=== PATIENT | male | born 1980 | race Caucasian/White ===

== ENCOUNTER 2017-02-15 02:24 | Inpatient (IN) | payer OTHER ==
[~2017-02-15] VITALS: Ht 177.8 cm; Wt 85.0 kg
[~2017-02-15 02:24] MED LIST: Z.0.NO CURRENT MEDS
[2017-02-15 02:43] VITALS: BP 170/78; PULSE 106; RESP 22; TEMP 100.7; O2SAT 96
--- NOTE | 2017-02-15 03:08 | PD ---
HPI Chief Complaint: Psychiatric Symptoms Time Seen by Provider: 02:50 Travel History International Travel<30 days: No Contact w/Intl Traveler<30days: No Traveled to known affect area: No History of Present Illness HPI This is a 36-year-old male who presents under Morgan act initiated by [facility]'s office. According to his paperwork, "after making contact with Endy Avila he appeared to be in mental distress and Endy made comments that if left alone that he would likely without treatment harm himself. " He reports for the past several days he has been having passive thoughts of suicide. He reports that yesterday he stated a friend's house and the friend had several animals. He reports that he woke up today with a pruritic widespread rash. Apparently just prior to arriving here he was seen at [facility] where he was diagnosed with bedbugs. He was prescribed permethrin, prednisone and Benadryl. Immediately after being seen at [facility] he found a transit police officer and said that he was suicidal now. During review of systems he does endorse a slight sore throat. No sick contacts. Denies any drug use. Denies cough, congestion, chest pain, shortness of breath, abdominal pain, flank pain. No other complaints. PFSH Past Medical History Anxiety: Yes Immunizations Current: Yes Social History Alcohol Use: Yes (SOCIAL) Tobacco Use: Yes (2 PPD) Substance Use: Yes Allergies-Medications (Allergen,Severity, Reaction): Coded Allergies: acetaminophen (Unverified Allergy, Severe, Anaphylaxis, 02/15/17) bee venom protein (honey bee) (Unverified Allergy, Severe, Anaphylaxis, ) penicillin G (Unverified Allergy, Mild, 02/15/17) Reported Meds & Prescriptions Reported Meds & Active Scripts Active Active Prescriptions or Reported Medications Unobtainable Review of Systems Except as stated in HPI: all other systems reviewed are Neg Physical Exam Narrative GENERAL: This is a well-developed well-nourished male who is agitated on examination. SKIN: Warm and dry. Excoriated papular rash noted on the torso and extremities. No vesicles, no pustules, no petechiae, no purpura. HEAD: Atraumatic. Normocephalic. EYES: Pupils equal and round. No scleral icterus. No injection or drainage. ENT: No nasal bleeding or discharge. Mucous membranes pink and moist. No oral pharyngeal erythema or exudate. NECK: Trachea midline. No JVD. No lymphadenopathy. CARDIOVASCULAR: Regular rate and rhythm. No murmur appreciated. RESPIRATORY: No accessory muscle use. Clear to auscultation. Breath sounds equal bilaterally. GASTROINTESTINAL: Abdomen soft, non-tender, nondistended. Hepatic and splenic margins not palpable. MUSCULOSKELETAL: No obvious deformities. No clubbing. No cyanosis. No edema. NEUROLOGICAL: Awake and alert. No obvious cranial nerve deficits. Motor grossly within normal limits. Normal speech. PSYCHIATRIC: Insight and judgment appear limited. Data Data Last Documented VS Vital Signs Date Time Temp Pulse Resp B/P (MAP) Pulse Ox O2 Delivery O2 Flow Rate FiO2 02/15/17 04:55 98.1 99 20 143/88 (106) 95 Room Air Orders Orders Complete Blood Count With Diff (02/15/17 03:02) Comprehensive Metabolic Panel (02/15/17 03:02) Psych Screen (02/15/17 03:02) Drug Screen, Random Urine (02/15/17 03:02) Alcohol (Ethanol) (02/15/17 03:02) Group A Rapid Strep Screen (02/15/17 03:02) Diphenhydramine Inj (Benadryl Inj) (02/15/17 03:15) Permethrin 5% Cream (Elimite 5% Cream) (02/15/17 03:15) Haloperidol Inj (Haldol Inj) (02/15/17 03:30) Diphenhydramine Inj (Benadryl Inj) (02/15/17 03:30) Midazolam Inj (Versed Inj) (02/15/17 03:30) Restraints Violent (02/15/17 03:27) Urinalysis - C+S If Indicated (02/15/17 04:09) Ketorolac Inj (Toradol Inj) (02/15/17 04:15) Lactic Acid Sepsis Protocol (02/15/17 04:29) Blood Culture (02/15/17 04:29) Chest, Single Ap (02/15/17 04:29) Sodium Chlor 0.9% 1000 Ml Inj (Ns 1000 M (02/15/17 04:29) Sodium Chlor 0.9% 1000 Ml Inj (Ns 1000 M (02/15/17 04:29) Creatine Kinase (Cpk) (02/15/17 04:28) CKMB (02/15/17 04:28) CKMB% (02/15/17 04:28) Clindamycin (Cleocin) (02/15/17 06:15) Admit Order (Ed Use Only) (02/15/17 06:15) Labs Laboratory Tests Test 02/15/17 04:28 White Blood Count 6.8 TH/MM3 Red Blood Count 4.39 MIL/MM3 Hemoglobin 13.6 GM/DL Hematocrit 39.6 % Mean Corpuscular Volume 90.1 FL Mean Corpuscular Hemoglobin 30.9 PG Mean Corpuscular Hemoglobin Concent 34.3 % Red Cell Distribution Width 12.3 % Platelet Count 194 TH/MM3 Mean Platelet Volume 9.6 FL Neutrophils (%) (Auto) 89.5 % Lymphocytes (%) (Auto) 8.2 % Monocytes (%) (Auto) 1.8 % Eosinophils (%) (Auto) 0.2 % Basophils (%) (Auto) 0.3 % Neutrophils # (Auto) 6.1 TH/MM3 Lymphocytes # (Auto) 0.6 TH/MM3 Monocytes # (Auto) 0.1 TH/MM3 Eosinophils # (Auto) 0.0 TH/MM3 Basophils # (Auto) 0.0 TH/MM3 CBC Comment DIFF FINAL Differential Comment Blood Urea Nitrogen 28 MG/DL Creatinine 1.11 MG/DL Random Glucose 84 MG/DL Total Protein 8.6 GM/DL Albumin 4.4 GM/DL Calcium Level 9.2 MG/DL Alkaline Phosphatase 111 U/L Aspartate Amino Transf (AST/SGOT) 83 U/L Alanine Aminotransferase (ALT/SGPT) 51 U/L Total Bilirubin 1.3 MG/DL Sodium Level 134 MEQ/L Potassium Level 3.8 MEQ/L Chloride Level 98 MEQ/L Carbon Dioxide Level 23.3 MEQ/L Anion Gap 13 MEQ/L Estimat Glomerular Filtration Rate 74 ML/MIN Total Creatine Kinase 1900 U/L Ethyl Alcohol Level LESS THAN 3 MG/DL MDM Medical Decision Making Medical Screen Exam Complete: Yes Emergency Medical Condition: Yes Medical Record Reviewed: Yes Differential Diagnosis Rash- fleabites versus bedbugs versus scabies versus scarlet fever versus viral exanthem Psychosis- adjustment reaction, bipolar disorder, major depressive disorder, substance induced mood disorder, acute psychosis, encephalitis, meningitis Narrative Course 36-year-old male presents under Morgan act for evaluation of past suicidal thoughts. On examination he is agitated, certainly appears unpredictable from a psychiatric standpoint. Just prior to arriving here he was seen at [facility] for evaluation of a pruritic rash started this morning after staying at a friend's house. The friend has several pets. Scabies, bedbugs, fleas are all on the differential for this. Permethrin was ordered. He also endorses a slight sore throat and his temperature was slightly elevated at 100.7 The patient's lab work reveals rhabdomyolysis with total CK of 1900. 2 L of IV fluids have been ordered. The patient does have a positive group A strep antigen which is the most likely etiology for his rash. He is allergic to penicillin and therefore he was started on clindamycin. He has no leukocytosis. Given his rhabdomyolysis, the patient was admitted medically. Discussed with Dr. Astorga. Diagnosis Primary Impression: Rhabdomyolysis Additional Impression: Scarlet fever Admitting Information Admitting Physician Requests: Admit Scripts Unable to Obtain Active Prescriptions or Reported Meds Akil Clinton Feb 15, 2017 03:08
[2017-02-15] MEDS ORDERED: diphenhydrAMINE HCL 50 MG/ML VIAL IM ONE ×2 (03:15→03:30)
[2017-02-15] MEDS ORDERED: PERMETHRIN 5% CREAM 60 GM TOPICAL ONE (03:15)
[2017-02-15] MEDS ORDERED: HALOPERIDOL LACTATE 5 MG/ML AMP IM ONE (03:30)
[2017-02-15] MEDS ORDERED: MIDAZOLAM HCL 2 MG/2 ML VIAL IM ONE (03:30)
[2017-02-15] MEDS ORDERED: KETOROLAC TROMETHAMINE 60 MG/2 ML (IM) VIAL IM ONE (04:15)
[2017-02-15] MEDS ORDERED: SODIUM CHLOR 0.9% 1000 ML INJ 1,000 ML IV SCH ×3 (04:29→06:20)
[2017-02-15 04:55] VITALS: BP 143/88; PULSE 99; RESP 20; TEMP 98.1; O2SAT 95
[2017-02-15 05:09] LABS: AUTOMATED NEUTROPHIL # 6.1 TH/MM3 (1.8-7.7); BASOPHIL % 0.3 % (0.0-2.0); EOSINOPHIL % 0.2 % (0.0-4.0); HEMATOCRIT 39.6 % (39.0-51.0); HEMO FLAGS DIFF FINAL; LYMPH % 8.2 % (9.0-44.0); LYMPHOCYTE # 0.6 TH/MM3 (1.0-4.8); MEAN CELL VOLUME 90.1 FL (80.0-100.0); MEAN CORPUSCULAR HEMOGLOBIN 30.9 PG (27.0-34.0); MEAN CORPUSCULAR HGB CONC 34.3 % (32.0-36.0); MONO % 1.8 % (0.0-8.0); NEUT % 89.5 % (16.0-70.0); PLATELET COUNT 194 TH/MM3 (150-450); RED BLOOD COUNT 4.39 MIL/MM3 (4.50-5.90); RED CELL DISTRIBUTION WIDTH 12.3 % (11.6-17.2); WHITE BLOOD COUNT 6.8 TH/MM3 (4.0-11.0)
[2017-02-15 05:31] LABS: ALT (GPT) 51 U/L (12-78); ANION GAP 13 MEQ/L (5-15); AST (GOT) 83 U/L (15-37); BICARBONATE 23.3 MEQ/L (21.0-32.0); BLOOD UREA NITROGEN 28 MG/DL (7-18); CHLORIDE 98 MEQ/L (98-107); GLOMERULAR FILTRATION RATE 74 ML/MIN (>89); POTASSIUM 3.8 MEQ/L (3.5-5.1); SODIUM (NA) 134 MEQ/L (136-145)
[2017-02-15 05:33] LABS: ALCOHOL LESS THAN 3 MG/DL (0-5)
[2017-02-15 05:46] LABS: ALKALINE PHOSPHATASE 111 U/L (45-117); CREATINE KINASE 1900 U/L (39-308); TOTAL BILIRUBIN ADULT 1.3 MG/DL (0.2-1.0)
--- NOTE | 2017-02-15 05:51 | RADRPT ---
EXAM DATE/TIME: 02/15/2017 05:41 [place] COMPARISON: No previous studies available for comparison. INDICATIONS : Fever. MEDICAL HISTORY : None. SURGICAL HISTORY : None. ENCOUNTER: Initial ACUITY: 1 day PAIN SCORE: 0/10 LOCATION: Bilateral chest FINDINGS: Single AP view of the chest. The lungs are clear. Cardiomediastinal silhouette within normal limits. No evidence of pleural effusion or pneumothorax. Osteochondral bodies are seen in the region of the l eft glenohumeral joint. CONCLUSION: No acute cardiopulmonary disease identified. Gary Chavarria MD on February 15, 2017 at 5:48 Board Certified Radiologist. This report was verified electronically.
--- NOTE | 2017-02-15 06:07 | PD ---
Physical Exam Date Seen by Provider: Feb 15, 2017 Time Seen by Provider: 05:30 Narrative Patient is strep positive has mild rhabdo has possibly his cardiac and rash from strep pharyngitis is admitted for all the above I agree with the plan into spelled by the PA Data Data Last Documented VS Vital Signs Date Time Temp Pulse Resp B/P (MAP) Pulse Ox O2 Delivery O2 Flow Rate FiO2 02/15/17 04:55 98.1 99 20 143/88 (106) 95 Room Air Orders Orders Complete Blood Count With Diff (02/15/17 03:02) Comprehensive Metabolic Panel (02/15/17 03:02) Psych Screen (02/15/17 03:02) Drug Screen, Random Urine (02/15/17 03:02) Alcohol (Ethanol) (02/15/17 03:02) Group A Rapid Strep Screen (02/15/17 03:02) Diphenhydramine Inj (Benadryl Inj) (02/15/17 03:15) Permethrin 5% Cream (Elimite 5% Cream) (02/15/17 03:15) Haloperidol Inj (Haldol Inj) (02/15/17 03:30) Diphenhydramine Inj (Benadryl Inj) (02/15/17 03:30) Midazolam Inj (Versed Inj) (02/15/17 03:30) Restraints Violent (02/15/17 03:27) Urinalysis - C+S If Indicated (02/15/17 04:09) Ketorolac Inj (Toradol Inj) (02/15/17 04:15) Lactic Acid Sepsis Protocol (02/15/17 04:29) Blood Culture (02/15/17 04:29) Chest, Single Ap (02/15/17 04:29) Sodium Chlor 0.9% 1000 Ml Inj (Ns 1000 M (02/15/17 04:29) Sodium Chlor 0.9% 1000 Ml Inj (Ns 1000 M (02/15/17 04:29) Creatine Kinase (Cpk) (02/15/17 04:28) CKMB (02/15/17 04:28) CKMB% (02/15/17 04:28) Clindamycin (Cleocin) (02/15/17 06:15) Labs Laboratory Tests Test 02/15/17 04:28 White Blood Count 6.8 TH/MM3 Red Blood Count 4.39 MIL/MM3 Hemoglobin 13.6 GM/DL Hematocrit 39.6 % Mean Corpuscular Volume 90.1 FL Mean Corpuscular Hemoglobin 30.9 PG Mean Corpuscular Hemoglobin Concent 34.3 % Red Cell Distribution Width 12.3 % Platelet Count 194 TH/MM3 Mean Platelet Volume 9.6 FL Neutrophils (%) (Auto) 89.5 % Lymphocytes (%) (Auto) 8.2 % Monocytes (%) (Auto) 1.8 % Eosinophils (%) (Auto) 0.2 % Basophils (%) (Auto) 0.3 % Neutrophils # (Auto) 6.1 TH/MM3 Lymphocytes # (Auto) 0.6 TH/MM3 Monocytes # (Auto) 0.1 TH/MM3 Eosinophils # (Auto) 0.0 TH/MM3 Basophils # (Auto) 0.0 TH/MM3 CBC Comment DIFF FINAL Differential Comment Blood Urea Nitrogen 28 MG/DL Creatinine 1.11 MG/DL Random Glucose 84 MG/DL Total Protein 8.6 GM/DL Albumin 4.4 GM/DL Calcium Level 9.2 MG/DL Alkaline Phosphatase 111 U/L Aspartate Amino Transf (AST/SGOT) 83 U/L Alanine Aminotransferase (ALT/SGPT) 51 U/L Total Bilirubin 1.3 MG/DL Sodium Level 134 MEQ/L Potassium Level 3.8 MEQ/L Chloride Level 98 MEQ/L Carbon Dioxide Level 23.3 MEQ/L Anion Gap 13 MEQ/L Estimat Glomerular Filtration Rate 74 ML/MIN Total Creatine Kinase 1900 U/L Ethyl Alcohol Level LESS THAN 3 MG/DL MDM Supervised Visit with VASILE: Yes Narrative Course Patient had mild elevation of temperature 100.7 we worked him up to make sure there was no infectious source. Chest x-ray is negative repeat temp oral is normal CPK was 1900. Patient will be admitted for IV hydration and repeat of CPK. I agree with the plan and management of this patient strep comes back positive we are treating him with clindamycin he is pen allergic and he is admitted for rhabdomyolysis and the rash may be secondary to strep positive pharyngitis Scripts Unable to Obtain Active Prescriptions or Reported Meds Nabil Méndez MD Feb 15, 2017 06:07
[2017-02-15] MEDS ORDERED: CLINDAMYCIN 150 MG CAP PO ONE (06:15)
[2017-02-15 06:22] LABS: CKMB 24.2 NG/ML (0.5-3.6)
[2017-02-15] MEDS ORDERED: SENNOSIDES 8.6 MG TAB PO PRN (06:30)
[2017-02-15] MEDS ORDERED: BISACODYL 10 MG SUPP RECTAL PRN (06:30)
[2017-02-15] MEDS ORDERED: ONDANSETRON HCL 4 MG/2 ML VIAL IVP PRN (06:30)
[2017-02-15] MEDS ORDERED: SODIUM CHLORIDE 0.9% FLUSH 10 ML FLUSH IV FLUSH PRN (06:30)
[2017-02-15] MEDS ORDERED: LACTULOSE SYRUP 20 GM/30 ML CUP PO PRN (06:30)
[2017-02-15] MEDS ORDERED: MAGNESIUM HYDROXIDE SUSP 30 ML CUP PO PRN (06:30)
[2017-02-15] MEDS ORDERED: ACETAMINOPHEN 325 MG TAB PO PRN (06:30)
[2017-02-15 07:06] VITALS: BP 157/85; PULSE 98; RESP 16; TEMP 97.5; O2SAT 97
[2017-02-15 08:28] VITALS: BP 135/76; PULSE 98; RESP 18; TEMP 96.9; O2SAT 100
--- NOTE | 2017-02-15 08:40 | HHI.HP ---
[facility] No Primary Care Physician Admission Diagnosis rhabdomyolysis, scarlet fever, Morgan act Diagnoses: Travel History International Travel<30 Days: No Contact w/Intl Traveler <30 Da: No Traveled to Known Affected Are: No History of Present Illness Pt is a 36 yr old male w PMHx w anxiety, depression, mood d/o, personality d/o presented under backer act. Pt is a poor historian, initially doesn't want to talk to me and states "I already said why I'm here" then rolls onto his side and closes his eyes. Upon further questioning, he tells me that he started feeling bad last night. He states he had a fever while here in the hospital, started having a sore throat since last night, no sick contacts that he knows. have been itching all over since last night, he was somewhere infested w "insects". no animal he states but "insects". He also admits that he constantly thinks about hurting himself then he becomes agitated and doesn't want to elaborate more about his thoughts or plan. Pt then jumps out of bed and states he needs to use the restroom. Sitter at bedside assisted the patient. Pt denied any chest pain, SOB, cough, sneezing, runny nose, abdominal pain. Review of Systems Except as stated in HPI: all other systems reviewed are Neg Past Family Social History Past Medical History anxiety, depression, mood d/o, personality d/o Past Surgical History right eye sx and left ankle sx Reported Medications Reported Meds & Active Scripts Active Active Prescriptions or Reported Medications Unobtainable Allergies: Coded Allergies: acetaminophen (Unverified Allergy, Severe, Anaphylaxis, 02/15/17) bee venom protein (honey bee) (Unverified Allergy, Severe, Anaphylaxis, ) penicillin G (Unverified Allergy, Mild, 02/15/17) Family History doesn't speak to his mother and father was murdered. 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 Normocephalic. No temporal or scalp tenderness. EYES: Pupils equal round and reactive. Extraocular motions intact. No scleral icterus. No injection or drainage. ENT: Nose without drainage or septal hematoma. Throat with some erythema, I didn't appreciate very enlarge tonssils and didn't see any purulent drainage NECK: Trachea midline. He does have some cervical lymphadenopathy CARDIOVASCULAR: Regular rate and rhythm without murmurs RESPIRATORY: Clear to auscultation. Breath sounds equal bilaterally. No wheezes GASTROINTESTINAL: Abdomen soft, non-tender, nondistended. No guarding. MUSCULOSKELETAL: Extremities without edema. walking in the room w no difficulty NEUROLOGICAL: initially keeps eyes close, and didn't want to answer questions, but later does offer some information then gets out of bed and uses the restroom Laboratory Laboratory Tests Test 02/15/17 04:28 02/15/17 05:15 White Blood Count 6.8 Red Blood Count 4.39 Hemoglobin 13.6 Hematocrit 39.6 Mean Corpuscular Volume 90.1 Mean Corpuscular Hemoglobin 30.9 Mean Corpuscular Hemoglobin Concent 34.3 Red Cell Distribution Width 12.3 Platelet Count 194 Mean Platelet Volume 9.6 Neutrophils (%) (Auto) 89.5 Lymphocytes (%) (Auto) 8.2 Monocytes (%) (Auto) 1.8 Eosinophils (%) (Auto) 0.2 Basophils (%) (Auto) 0.3 Neutrophils # (Auto) 6.1 Lymphocytes # (Auto) 0.6 Monocytes # (Auto) 0.1 Eosinophils # (Auto) 0.0 Basophils # (Auto) 0.0 CBC Comment DIFF FINAL Differential Comment Blood Urea Nitrogen 28 Creatinine 1.11 Random Glucose 84 Total Protein 8.6 Albumin 4.4 Calcium Level 9.2 Alkaline Phosphatase 111 Aspartate Amino Transf (AST/SGOT) 83 Alanine Aminotransferase (ALT/SGPT) 51 Total Bilirubin 1.3 Sodium Level 134 Potassium Level 3.8 Chloride Level 98 Carbon Dioxide Level 23.3 Anion Gap 13 Estimat Glomerular Filtration Rate 74 Total Creatine Kinase 1900 Creatine Kinase MB 24.2 Creatine Kinase MB % 1.3 Ethyl Alcohol Level LESS THAN 3 Lactic Acid Level 1.0 Date/Time Source Procedure Growth Status 02/15/17 06:15 Blood Peripheral Aerobic Blood Culture Pending Received 02/15/17 06:15 Blood Peripheral Anaerobic Blood Culture Pending Received 02/15/17 05:20 Throat Group A Streptococcus Screen (BORA) - Final Pos For Grp A Strep Antigen Complete Result Diagram: 02/15/1742702/15/17427 Imaging Last Impressions Chest X-Ray 02/15/17428 Signed Impressions: Service Date/Time: Wednesday, February 15, 2017 05:41 - CONCLUSION: No acute cardiopulmonary disease identified. MD Cayden Deleon VTE Risk Assessment Caprini VTE Risk Assessment: No/Low Risk (score <= 1) Caprini Risk Assessment Model Point Value = 1 Point Value = 2 Point Value = 3 Point Value = 5 Age 41-60 Minor surgery BMI > 25 kg/m2 Swollen legs Varicose veins or History of unexplained or recurrent spontaneous Oral contraceptives or hormone replacement Sepsis (< 1 month) Serious lung disease, including pneumonia (< 1 month) Abnormal pulmonary function Acute myocardial infarction Congestive heart failure (< 1 month) History of inflammatory bowel disease Medical patient at bed rest Age 61-74 Arthroscopic surgery Major open surgery (> 45 min) Laparoscopic surgery (> 45 min) Malignancy Confined to bed (> 72 hours) Immobilizing plaster cast Central venous access Age >= 75 History of VTE Family history of VTE Factor V Leiden Prothrombin [id number] Lupus anticoagulant Anticardiolipin antibodies Elevated serum homocysteine Heparin-induced thrombocytopenia Other congenital or acquired thrombophilia Stroke (< 1 month) Elective arthroplasty Hip, pelvis, or leg fracture Acute spinal cord injury (< 1 month) Prophylaxis Regimen Total Risk Factor Score Risk Level Prophylaxis Regimen 0-1 Low Early ambulation 2 Moderate Order ONE of the following: *Sequential Compression Device (SCD) *Heparin 5000 units SQ BID 3-4 Higher Order ONE of the following medications: *Heparin 5000 units SQ TID *Enoxaparin/Lovenox 40 mg SQ daily (WT < 150 kg, CrCl > 30 mL/min) *Enoxaparin/Lovenox 30 mg SQ daily (WT < 150 kg, CrCl > 10-29 mL/min) *Enoxaparin/Lovenox 30 mg SQ BID (WT < 150 kg, CrCl > 30 mL/min) AND/OR *Sequential Compression Device (SCD) 5 or more Highest Order ONE of the following medications: *Heparin 5000 units SQ TID (Preferred with Epidurals) *Enoxaparin/Lovenox 40 mg SQ daily (WT < 150 kg, CrCl > 30 mL/min) *Enoxaparin/Lovenox 30 mg SQ daily (WT < 150 kg, CrCl > 10-29 mL/min) *Enoxaparin/Lovenox 30 mg SQ BID (WT < 150 kg, CrCl > 30 mL/min) AND *Sequential Compression Device (SCD) Assessment and Plan Assessment and Plan Strep throat pharyngitis: PNC allergic, confirmed on Group A strep antigen. Given a dose of clinda in ER, will continue clindamycin IV for now and transition to 300mg po TID for a total of 10 days. Blood cx were drawn en ER, will f/u. chest x-ray neg. Suicidal thoughts/thoughts to harm himself.: Pt currently under backer act. Sitter at bedside. will consult psych for assistance and recs. Pt admits to me that he constantly thinks about harming himself. Pt also w dx of depression/personality d/o/mood d/o: psych consulted Itching/rash: pt treated w permetrim in ED for possible scabies. Continue benadryl prn. Itching has resolved DVT proph: SCD Code Status Pt states that he wants to be a DNR however due to his constant thoughts of harming himself, will defer to psych evaluation for capacity to make this decision and pt is also under Backer act. Discussed Condition With patient and Fabiana Whalen MD Feb 15, 2017 08:40
[2017-02-15] MEDS ORDERED: diphenhydrAMINE HCL 25 MG CAP PO PRN (08:45)
[2017-02-15] MEDS ORDERED: SODIUM CHLORIDE 0.9% FLUSH 10 ML FLUSH IV FLUSH SCH (09:00)
[2017-02-15] MEDS ORDERED: DOCUSATE SODIUM 50 MG/SENNA 8.6 MG TAB PO SCH (09:00)
[2017-02-15 11:28] VITALS: BP 152/93; PULSE 97; RESP 17; TEMP 98.3; O2SAT 92
[2017-02-15] MEDS ORDERED: CLIN300C5 PO (11:42)
[2017-02-15] MEDS ORDERED: CLINDAMYCIN 600 MG/NS PREMIX 50 ML IV SCH (12:00)
[2017-02-15] MEDS ORDERED: HALOPERIDOL LACTATE 5 MG/ML AMP IM PRN (12:45)
[2017-02-15] MEDS ORDERED: QUEtiapine FUMARATE 25 MG TAB PO SCH (12:45)
--- NOTE | 2017-02-15 12:54 | PD.PSY.CON ---
Provisional Diagnosis Admission Date Feb 15, 2017 at 06:16 [place] I. Adjustment disorder with depressed mood, self reported bipolar disorder, borderline personality disorder, antisocial personality disorder [place] II. Antisocial personality disorder [place] III. No significant medical history History of Present Illness Service Psychiatry Consult Requested By Medical team Reason for Consult Suicidal ideation Primary Care Physician No Primary Care Physician HPI The patient is a a 36 year-old man, single, unemployed, homeless, with a self-reported psychiatric history of bipolar disorder, anxiety, antisocial personality disorder, borderline personality disorder, substance use disorder, multiple psychiatric hospitalizations, multiple suicidal attempts, self cutting behavior with no SI, aggressive behavior, multiple incarcerations, significant medical history, who was consulted to psychiatry due to SI in the ER. Pt is a poor historian, initially doesn't want to talk to me and states "I already said why I'm here" then rolls onto his side and closes his eyes. Upon further questioning, he tells me that he started feeling bad last night. He states he had a fever while here in the hospital, started having a sore throat since last night, no sick contacts that he knows. have been itching all over since last night, he was somewhere infested w "insects". no animal he states but "insects". He also admits that he constantly thinks about hurting himself then he becomes agitated and doesn't want to elaborate more about his thoughts or plan. Pt then jumps out of bed and states he needs to use the restroom. Sitter at bedside assisted the patient.Pt denied any chest pain, SOB, cough, sneezing, runny nose, abdominal pain. On psychiatric evaluation the patient is found sleeping in his bed, oppositional, irritable, resistant to the evaluation. He says that he doesn't want to talk, that he is frustrated and very overwhelmed and he prefers not to talk at this moment. Patient says that "yes I want to , he is want to kill myself". Patient reports that he doesn' t care about his life anymore, he says that he has been living in [address], very sick, with a lot of pain and itching in his legs. Review of Systems Constitutional: DENIES: Diaphoretic episodes, Fatigue, Fever, Weight gain, Weight loss, Chills, Dizziness, Change in appetite, Night Sweats Endocrine: DENIES: Heat/cold intolerance, Polydipsia, Polyuria, Polyphagia Ears, nose, mouth, throat: DENIES: Tinnitus, Hearing loss, Vertigo, Nasal discharge, Oral lesions, Throat pain, Hoarseness, Ear Pain, Running Nose, Epistaxis, Sinus Pain, Toothache, Odynophagia Respiratory: DENIES: Apneas, Cough, Snoring, Wheezing, Hemoptysis, Sputum production, Shortness of breath Cardiovascular: DENIES: Chest pain, Palpitations, Syncope, Dyspnea on Exertion , PND, Lower Extremity Edema, Orthopnea, Claudication Gastrointestinal: DENIES: Abdominal pain, Black stools, Bloody stools, Constipation, Diarrhea, Nausea, Vomiting, Difficulty Swallowing, Anorexia Genitourinary: DENIES: Sexual dysfunction, Urinary frequency, Urinary incontinence, Urgency, Hematuria, Dysuria, Nocturia, Penile Discharge, Testicular Pain, Testicular Swelling Musculoskeletal: COMPLAINS OF: Joint pain, DENIES: Muscle aches, Stiffness, Joint Swelling, Back pain, Neck pain Integumentary: DENIES: Abnormal pigmentation, Nail changes, Pruritus, Rash Immunologic/allergic: COMPLAINS OF: Eczema, DENIES: Urticaria Psychiatric: COMPLAINS OF: Depression, Suicidal Ideation Other Legs itchiness Past Family Social History Coded Allergies: acetaminophen (Unverified Allergy, Severe, Anaphylaxis, 02/15/17) bee venom protein (honey bee) (Unverified Allergy, Severe, Anaphylaxis, ) penicillin G (Unverified Allergy, Mild, 02/15/17) Active Scripts Clindamycin (Clindamycin) 300 Mg Cap, 300 MG PO TID for Infection for 10 Days, # 29 CAP 0 Refills Prov:Fabiana Arellano MD 02/15/17 Discontinued Reported Medications Miscellaneous (No Current Meds) Misc 09/05/08 Current Medications Medications (Trade) Dose Ordered Sig/Lanette Route Start Time Stop Time Status Last Admin Clindamycin/ Sodium Chloride 50 ml @ 100 mls/hr Q6H IV 02/15/17 12:00 Sodium Chloride 1,000 ml @ 150 mls/hr Q6H40M IV 02/15/17 06:20 (NS Flush) 2 ml UNSCH PRN IV FLUSH 02/15/17 06:30 (NS Flush) 2 ml BID IV FLUSH 02/15/17 09:00 02/15/17 10:00 (Zofran Inj) 4 mg Q6H PRN IVP 02/15/17 06:30 (Rebekah-Colace) 1 tab BID PO 02/15/17 09:00 (Milk Of Magnesia Liq) 30 ml Q12H PRN PO 02/15/17 06:30 (Senokot) 17.2 mg Q12H PRN PO 02/15/17 06:30 (Dulcolax Supp) 10 mg DAILY PRN RECTAL 02/15/17 06:30 (Lactulose Liq) 30 ml DAILY PRN PO 02/15/17 06:30 (Benadryl) 25 mg Q6H PRN PO 02/15/17 08:45 (SEROquel) 50 mg BID PO 02/15/17 12:45 UNV Family Psych History He denies family psychiatric history Social History Patient was born and raised in [place], he lives in [facility], he is homeless, unemployed, single, his highest level of education is high school Patient's Strengths (min. 2) Verbal communication Physical Exam No EPS, no tremors, no withdrawal noted Vital Signs Vital Signs Date Time Temp Pulse Resp B/P (MAP) Pulse Ox O2 Delivery O2 Flow Rate FiO2 02/15/17 11:28 98.3 97 17 152/93 (112) 92 02/15/17 07:06 Room Air I/O 02/15/17 02/15/17 02/16/17 08:00 16:00 00:00 Intake Total 1000 ml Balance 1000 ml Lab Results Test 02/15/17 04:28 02/15/17 05:15 White Blood Count 6.8 TH/MM3 Red Blood Count 4.39 MIL/MM3 Hemoglobin 13.6 GM/DL Hematocrit 39.6 % Mean Corpuscular Volume 90.1 FL Mean Corpuscular Hemoglobin 30.9 PG Mean Corpuscular Hemoglobin Concent 34.3 % Red Cell Distribution Width 12.3 % Platelet Count 194 TH/MM3 Mean Platelet Volume 9.6 FL Neutrophils (%) (Auto) 89.5 % Lymphocytes (%) (Auto) 8.2 % Monocytes (%) (Auto) 1.8 % Eosinophils (%) (Auto) 0.2 % Basophils (%) (Auto) 0.3 % Neutrophils # (Auto) 6.1 TH/MM3 Lymphocytes # (Auto) 0.6 TH/MM3 Monocytes # (Auto) 0.1 TH/MM3 Eosinophils # (Auto) 0.0 TH/MM3 Basophils # (Auto) 0.0 TH/MM3 CBC Comment DIFF FINAL Differential Comment Blood Urea Nitrogen 28 MG/DL Creatinine 1.11 MG/DL Random Glucose 84 MG/DL Total Protein 8.6 GM/DL Albumin 4.4 GM/DL Calcium Level 9.2 MG/DL Alkaline Phosphatase 111 U/L Aspartate Amino Transf (AST/SGOT) 83 U/L Alanine Aminotransferase (ALT/SGPT) 51 U/L Total Bilirubin 1.3 MG/DL Sodium Level 134 MEQ/L Potassium Level 3.8 MEQ/L Chloride Level 98 MEQ/L Carbon Dioxide Level 23.3 MEQ/L Anion Gap 13 MEQ/L Estimat Glomerular Filtration Rate 74 ML/MIN Total Creatine Kinase 1900 U/L Creatine Kinase MB 24.2 NG/ML Creatine Kinase MB % 1.3 % Ethyl Alcohol Level LESS THAN 3 MG/DL Lactic Acid Level 1.0 mmol/L Date/Time Source Procedure Growth Status 02/15/17 06:15 Blood Peripheral Aerobic Blood Culture Pending Received 02/15/17 06:15 Blood Peripheral Anaerobic Blood Culture Pending Received 02/15/17 05:20 Throat Group A Streptococcus Screen (BORA) - Final Pos For Grp A Strep Antigen Complete Mental Status Examination Appearance: Dirty, Disheveled Consciousness: Alert Orientation: x4 Motor Activity: Normal gait Speech: Hesitant Language: Adequate Fund of Knowledge: Adequate Attention and Concentration: Adequate Memory: Unremarkable Mood: Angry, Irritable Affect: Irritable Thought Process & Associations: Intact Thought Content: Appropriate Hallucination Type: None Delusion Type: None Suicidal Ideation: Yes Suicidal Plan: Yes Suicidal Intention: No Homicidal Ideation: No Homicidal Plan: No Homicidal Intention: No Insight: Poor Judgment: Poor Assessment & Plan Problem List: (1) Adjustment disorder with depressed mood ICD Codes: F43.21 - Adjustment disorder with depressed mood Assessment & Plan: On psychiatric evaluation the patient is irritable, oppositional, resistant, refusing to fully cooperate and provide information for the psychiatric assessment. Patient does report that he has been very overwhelmed, stressed, angry and having suicidal ideation with the plan of overdosing or jumping into traffic. The patient has an extensive history of psychiatric admissions, I'll attempts, self cutting behavior with no SI, poor impulse control, aggressive behavior, substance abuse, incarcerations, and he has been diagnosed with borderline personality disorder and antisocial personality disorder in the past. Patient has an increased risk of suicidality and danger to himself at this moment and he needs psychiatric admission for stabilization. I have discussed with primary medical team the benefit of psychiatric admission in the med psych unit to continue medical care/ psychiatric care concomitantly. Will order Seroquel 50 twice a day for mood stabilization. Haldol 5 mg IM every 8 hours when necessary aggressive behavior and agitation, since patient has also an increased risk for agitation and aggressive behavior. Keep the patient with a one-to-one sitter in the medical floor. Brief supportive psychotherapy, motivation and psychoeducation provided. Collateral information still pending. Assessment & Plan Estimated LOS: Mikael Nj MD Feb 15, 2017 12:54
== END 2017-02-15 18:22 | DRG 558 ==
LOC: NEPJ 02:24 → NEDA 06:16 → N05B 07:36
PROVIDERS: ADMIT Family Medicine; ATTEND Family Medicine
DX: M62.82 Rhabdomyolysis (principal); R45.851 Suicidal ideations; J02.0 Streptococcal pharyngitis; B86 Scabies; F31.9 Bipolar disorder, unspecified; F43.21 Adjustment disorder with depressed mood; F60.2 Antisocial personality disorder; F60.3 Borderline personality disorder; F17.200 Nicotine dependence, unspecified, uncomplicated; Z59.0 Homelessness; Z88.0 Allergy status to penicillin; Z88.6 Allergy status to analgesic agent; Z91.030 Bee allergy status; Z91.5 Personal history of self-harm
CPT/HCPCS: 71010; 76937; 80053; 80307; 82550; 82552; 83605; 85025; 87040; 87880; 96372; J1200; J1630; J2250; J7030

== ENCOUNTER 2017-02-15 15:39 | Inpatient (IN) | payer SELFPAY ==
[~2017-02-15] VITALS: Ht 180.3 cm; Wt 82.0 kg
[~2017-02-15 15:39] MED LIST changes: +CLIN300C5 PO
[2017-02-15 18:40] VITALS: BP 121/66; PULSE 96; RESP 17; TEMP 97.1; O2SAT 98
[2017-02-15] MEDS ORDERED: FLUMAZENIL 0.5 MG/5 ML VIAL IV PUSH PRN (19:15)
[2017-02-15] MEDS ORDERED: ALUMINUM/MAGNESIUM/SIMETH 30 ML CUP PO PRN (19:15)
[2017-02-15] MEDS ORDERED: MAGNESIUM HYDROXIDE SUSP 30 ML CUP PO PRN (19:15)
[2017-02-15] MEDS ORDERED: diphenhydrAMINE HCL 50 MG/ML VIAL IM PRN (19:15)
[2017-02-15] MEDS ORDERED: LORazepam 2 MG TAB PO PRN (19:15)
[2017-02-15] MEDS ORDERED: LORazepam 1 MG TAB PO PRN (19:15)
[2017-02-15] MEDS ORDERED: diphenhydrAMINE HCL 50 MG CAP PO PRN (19:15)
[2017-02-16 05:38] VITALS: BP 151/71; PULSE 85; RESP 18; TEMP 97.7; O2SAT 98
--- NOTE | 2017-02-16 07:35 | PD.CONS ---
HPI Service [facility] Hospitalists Consult Requested By Dr Thurman Reason for Consult medical management Primary Care Physician Unknown Diagnoses: (1) Suicidal thoughts (2) Adjustment disorder with depressed mood History of Present Illness Pt is a 36 yr old male w PMHx w anxiety, depression, mood d/o, personality d/o presented under backer act initially to the ED. Patient said had a fever while in the hospital, started having a sore throat, no sick contacts that he knows. Have been itching all over he was somewhere infested with "insects". He also admitted that he constantly thinks about hurting himself then he becomes agitated and doesn't want to elaborate more about his thoughts or plan. Patient was treated with permethrin in the ED. Was found with rhabdomyolysis and received IVF. Stared on antibiotics for sore throat, he was discharged to medical /psych for further management. No urinary complaints, urine is clear - yellow. Rash improved and is not itchy. No more sore throat. Able to eat and tolerates food. Pt denied any chest pain, SOB, cough, sneezing, runny nose, abdominal pain. Refusing labs. Review of Systems Except as stated in HPI: all other systems reviewed are Neg Past Family Social History Allergies: Coded Allergies: acetaminophen (Unverified Allergy, Severe, Anaphylaxis, 02/15/17) bee venom protein (honey bee) (Unverified Allergy, Severe, Anaphylaxis, ) penicillin G (Unverified Allergy, Mild, 02/15/17) Past Medical History anxiety, depression, mood d/o, personality d/o Past Surgical History right eye sx and left ankle sx Reported Medications Reported Meds & Active Scripts Active Clindamycin (Clindamycin HCl) 300 Mg Cap 300 Mg PO TID 10 Days Family History doesn't speak to his mother and father was murdered. He doesn't offer any information regarding their health when asked Social History started smoking 2 months ago, <1ppd states he used to be a heroin addict no alcohol use Physical Exam Vital Signs Vital Signs Date Time Temp Pulse Resp B/P (MAP) Pulse Ox O2 Delivery O2 Flow Rate FiO2 02/16/17 05:38 97.7 85 18 151/71 (97) 98 02/15/17 18:40 97.1 96 17 121/66 (84) 98 Physical Exam GENERAL: This is a well-nourished, well-developed patient, in no apparent distress. SKIN: Rash on LE. Cool and dry. HEAD: Atraumatic. Normocephalic. No temporal or scalp tenderness. EYES: Pupils equal round and reactive. Extraocular motions intact. No scleral icterus. No injection or drainage. ENT: Nose without bleeding, purulent drainage or septal hematoma. Throat without erythema, tonsillar hypertrophy or exudate. Uvula midline. Airway patent. NECK: Trachea midline. No JVD or lymphadenopathy. Supple, nontender, no meningeal signs. CARDIOVASCULAR: Regular rate and rhythm without murmurs, gallops, or rubs. RESPIRATORY: Clear to auscultation. Breath sounds equal bilaterally. No wheezes , rales, or rhonchi. GASTROINTESTINAL: Abdomen soft, non-tender, nondistended. No hepato-splenomegaly , or palpable masses. No guarding. MUSCULOSKELETAL: Extremities without clubbing, cyanosis, or edema. No joint tenderness, effusion, or edema noted. No calf tenderness. Negative Homans sign bilaterally. NEUROLOGICAL: Awake and alert. Cranial nerves II through XII intact. Motor and sensory grossly within normal limits. Five out of 5 muscle strength in all muscle groups. Normal speech. Assessment and Plan Assessment and Plan Strep throat pharyngitis: PNC allergic, confirmed on Group A strep antigen. Given a dose of clinda in ER, will continue clindamycin IV for now and transition to 300mg po TID for a total of 10 days. chest x-ray neg. Rhabdomyolysis: Continue IVF. Monitor CPK level. Monitor kidney function. Suicidal thoughts/thoughts to harm himself.: Pt currently under backer act. Sitter at bedside. will consult psych for assistance and recs. Pt admits to me that he constantly thinks about harming himself. Suicidal ideation. Depression/personality/mood disorder: management per psych Itching/rash: pt treated with permetrin in ED for possible scabies. Continue benadryl prn. Itching has resolved DVT proph: early ambulation Patient is refusing labs Discussed Condition With patient, nurse Yaneth Pang MD Feb 16, 2017 07:35
[2017-02-16] MEDS: REMOVE OLD PATCH T-DERMAL SCH (08:22)
[2017-02-16] MEDS: CLINDAMYCIN 150 MG CAP PO SCH ×3 (08:22→18:00)
[2017-02-16] MEDS: NICOTINE 21 MG/24 HR PATCH T-DERMAL SCH (08:26)
--- NOTE | 2017-02-16 12:12 | HHI.HP ---
Provisional Diagnosis Admission Date Feb 15, 2017 at 18:15 [place] I. Adjustment disorder with depressed mood, history of bipolar disorder Certification of Person's Competence To Provide Express and Informed Consent I have personally examined Endy GillespieJr , a person being served at [facility] on, Feb 16, 2017 11:58. Express and informed consent means consent voluntarily given in writing, by a competent person, after sufficient explanation and disclosure of the subject matter involved to enable the person to make a knowing and willful decision without any element of force, fraud, deceit, duress, or other form of constraint or coercion. This person is 18 years of age or older, is not now known to be incompetent to consent to treatment with a guardian advocate, and does not have a health care surrogate or proxy currently making medical treatment decisions. I have found this person to be one of the following: [x] Competent to provide express and informed consent, as defined above, for voluntary admission to this facility and is competent to provide express and informed consent for treatment. He/she has the consistent capacity to make well reasoned, willful, and knowing decisions concerning his or her medical or mental health treatment. The person fully and consistently understands the purpose of the admission for examination/placement and is fully capable of personally exercising all rights assured [place] Incompetent to provide express and informed consent to voluntary admission, and this is incompetent to provide express and informed consent to treatment. The person must be transferred to involuntary status and a petition for a guardian advocate filed with the Circuit Court. [] Refusing to provide express and informed consent to voluntary admission but is competent to provide express and informed consent for treatment. The person must be discharged or transferred to involuntary status. Form shall be completed within 24 hours of a person's arrival at the receiving facility and filed in the clinical record of each person: 1. Admitted on a voluntary basis 2. Permitted to provide express and informed consent to his/her own treatment 3. Allowed to transfer from involuntary to voluntary status 4. Prior to permitting a person to consent to his or her own treatment after having been previously found incompetent to consent to treatment. History of Present Illness Capacity: Has Capacity HPI 02/15/2017 On psychiatric evaluation the patient is irritable, oppositional, resistant, refusing to fully cooperate and provide information for the psychiatric assessment. Patient does report that he has been very overwhelmed, stressed, angry and having suicidal ideation with the plan of overdosing or jumping into traffic. The patient has an extensive history of psychiatric admissions, I'll attempts, self cutting behavior with no SI, poor impulse control, aggressive behavior, substance abuse, incarcerations, and he has been diagnosed with borderline personality disorder and antisocial personality disorder in the past. Patient has an increased risk of suicidality and danger to himself at this moment and he needs psychiatric admission for stabilization. I have discussed with primary medical team the benefit of psychiatric admission in the med psych unit to continue medical care/psychiatric care concomitantly. Will order Seroquel 50 twice a day for mood stabilization. Haldol 5 mg IM every 8 hours when necessary aggressive behavior and agitation, since patient has also an increased risk for agitation and aggressive behavior. Keep the patient with a one-to-one sitter in the medical floor. Brief supportive psychotherapy, motivation and psychoeducation provided. Collateral information still pending. 02/16/2017 patient was seen today for psychiatric reevaluation. Chart reviewed. Recommendation for hospitalist reviewed and appreciated. She was sitting alone with nurse in charge Arianna. On psychiatric evaluation patient is irritable, demanding, verbally hostile. Patient says that he doesn't want to give any blood because he is tired of people thinking that he is a drug addict. Patient reports feeling "the same", he says that he has been feeling depressed sad and empty for many years and he doesn't understand what is wrong with him. At this moment the patient denies suicidal and homicidal ideation, he denies visual and auditory hallucinations. He feels safe in the unit. He is oriented 3, no gross cognitive impairment present. As the nurse was explaining to the patient the importance of having an IV line, the patient became all of the sudden loud and disrespectful with the nurse and had to be verbally de-escalate. Review of Systems Psychiatric: COMPLAINS OF: Depression Except as stated in HPI: all other systems reviewed are Neg Past Family Social History Coded Allergies: acetaminophen (Unverified Allergy, Severe, Anaphylaxis, 02/15/17) bee venom protein (honey bee) (Unverified Allergy, Severe, Anaphylaxis, ) penicillin G (Unverified Allergy, Mild, 02/15/17) Active Scripts Clindamycin (Clindamycin) 300 Mg Cap, 300 MG PO TID for Infection for 10 Days, # 29 CAP 0 Refills Prov:Fabiana Arellano MD 02/15/17 Discontinued Reported Medications Miscellaneous (No Current Meds) Misc 09/05/08 Current Medications Medications (Trade) Dose Ordered Sig/Lanette Route Start Time Stop Time Status Last Admin (Benadryl) 50 mg Q6H PRN PO 02/15/17 19:15 (Benadryl Inj) 50 mg Q6H PRN IM 02/15/17 19:15 (Milk Of Magnesia Liq) 30 ml DAILY PRN PO 02/15/17 19:15 (Mag-Al Plus Susp Liq) 30 ml Q6H PRN PO 02/15/17 19:15 (Habitrol 21 Mg Patch.24 Hr) 1 patch DAILY T-DERMAL 02/16/17 09:00 (Romazicon Inj) 0.2 mg Q1M PRN IV PUSH 02/15/17 19:15 (Ativan) 1 mg Q4H PRN PO 02/15/17 19:15 (Ativan) 2 mg Q2H PRN PO 02/15/17 19:15 Miscellaneous Information 1 DAILY T-DERMAL 02/16/17 09:00 (Cleocin) 300 mg TID PO 02/16/17 09:00 02/16/17 08:22 (SEROquel) 50 mg BID PO 02/16/17 12:00 UNV (Desyrel) 100 mg HS PO 02/16/17 21:00 UNV (Atarax) 25 mg Q8H PO 02/16/17 12:00 UNV Physical Exam Vital Signs Vital Signs Date Time Temp Pulse Resp B/P (MAP) Pulse Ox O2 Delivery O2 Flow Rate FiO2 02/16/17 05:38 97.7 85 18 151/71 (97) 98 I/O 02/16/17 02/16/17 02/17/17 08:00 16:00 00:00 Intake Total 360 ml Balance 360 ml Mental Status Examination Appearance: Appropriate Consciousness: Alert Orientation: x4 Motor Activity: Normal gait Speech: Unremarkable Language: Adequate Fund of Knowledge: Adequate Attention and Concentration: Adequate Memory: Unremarkable Mood: Angry, Sad Affect: Irritable Thought Process & Associations: Intact Thought Content: Appropriate Hallucination Type: None Delusion Type: None Suicidal Ideation: No Suicidal Plan: No Suicidal Intention: No Homicidal Ideation: No Homicidal Plan: No Homicidal Intention: No Insight: Adequate Judgment: Adequate Assessment & Plan Problem List: (1) Adjustment disorder with depressed mood ICD Codes: F43.21 - Adjustment disorder with depressed mood Assessment & Plan: On psychiatric evaluation today patient continues to endorse symptoms of depression and emptiness, today he denies suicidal ideation and he contracted for safety in the unit. Patient shows irritability, demanding and antisocial behavior, projective identification against the nurse. We will continue the Seroquel 50 mg twice a day, add trazodone 100 mg at bedtime, hydroxyzine 25 mg every 8 hours for anxiety, Thorazine 100 mg IM every 8 hours when necessary aggressive behavior and agitation. We will keep the patient under psychiatric hospitalization for stabilization and for more longitudinal observation of mood and behavior. My impression is the current symptoms are more associated with personality pathology than with a primary mood disorder decompensation. I want to transfer the patient to 2700 unit since he doesn't need anymore IV antibiotics and due to his potential of aggressiveness. Patient will sign voluntary admission. Brief supportive psychotherapy and motivation provided. (2) Antisocial personality disorder ICD Codes: F60.2 - Antisocial personality disorder Assessment & Plan Estimated LOS: Mikael Nj MD Feb 16, 2017 12:12
[2017-02-16] MEDS: hydrOXYzine HCL 25 MG TAB PO SCH ×2 (13:27→20:35)
[2017-02-16] MEDS: QUEtiapine FUMARATE 25 MG TAB PO SCH ×2 (13:28→20:35)
[2017-02-16 17:27] VITALS: BP 132/85; PULSE 78; RESP 18; TEMP 97.6; O2SAT 99
[2017-02-16] MEDS: traZODone HCL 100 MG TAB PO SCH (20:35)
[2017-02-17] MEDS: hydrOXYzine HCL 25 MG TAB PO SCH ×3 (05:00→20:33)
[2017-02-17 06:06] VITALS: BP 104/58; PULSE 77; RESP 16; TEMP 97.5; O2SAT 96
[2017-02-17] MEDS: REMOVE OLD PATCH T-DERMAL SCH (09:00)
[2017-02-17] MEDS: QUEtiapine FUMARATE 25 MG TAB PO SCH ×2 (09:43→20:34)
[2017-02-17] MEDS: CLINDAMYCIN 150 MG CAP PO SCH ×2 (09:43→12:21)
[2017-02-17] MEDS: NICOTINE 21 MG/24 HR PATCH T-DERMAL SCH (09:43)
--- NOTE | 2017-02-17 13:22 | HHI.PYPN ---
Subjective Remarks Patient was seen and case discussed with nursing. Patient is oppositional and minimally interactive during the interview. Laying in bed turning the other way. Complaining of being overmedicated feeling "like a zombie." History significant for personality disorder. Says he has passive suicidal ideation with no intent or plan. Patient's hands are swollen and he claims that this began since his admission. Patient is complaining of mild pain Mental Status Examination Appearance: Appropriate Consciousness: Alert Orientation: x4 Motor Activity: Normal gait Speech: Unremarkable Language: Adequate Fund of Knowledge: Adequate Attention and Concentration: Adequate Memory: Unremarkable Mood: Angry, Sad, Irritable Affect: Irritable Thought Process & Associations: Intact Thought Content: Appropriate Hallucination Type: None Delusion Type: None Suicidal Ideation: No Suicidal Plan: No Suicidal Intention: No Homicidal Ideation: No Homicidal Plan: No Homicidal Intention: No Insight: Adequate Judgment: Adequate Results Vitals/IOs Vital Signs Date Time Temp Pulse Resp B/P (MAP) Pulse Ox O2 Delivery O2 Flow Rate FiO2 02/17/17 06:06 97.5 77 16 104/58 (73) 96 Intake and Output 02/17/17 02/17/17 02/18/17 08:00 16:00 00:00 Intake Total 360 ml Balance 360 ml Assessment & Plan Problem List: (1) Adjustment disorder with depressed mood ICD Codes: F43.21 - Adjustment disorder with depressed mood (2) Antisocial personality disorder ICD Codes: F60.2 - Antisocial personality disorder Assessment & Plan Nursing will contact the medical team for further evaluation of hand swelling Justification for Cont. Inpt. Patient will decompensate in a less restrictive setting Taras Sandy DO Feb 17, 2017 13:22
[2017-02-17] MEDS ORDERED: AZITHROMYCIN 250 MG TAB PO ONE (16:00)
--- NOTE | 2017-02-17 16:06 | HHI.PR ---
Subjective Remarks Patient complaining of bilateral hand swelling that occurred since yesterday. She has resolved. Denies any shortness of breathing or any wrist 3 symptoms. His nurse is present during the interview. Patient has never had this happen. He is concern for allergic reaction. Objective Vitals Vital Signs Date Time Temp Pulse Resp B/P (MAP) Pulse Ox O2 Delivery O2 Flow Rate FiO2 02/17/17 06:06 97.5 77 16 104/58 (73) 96 02/16/17 17:27 97.6 78 18 132/85 (101) 99 I/O 02/16/17 02/16/17 02/16/17 02/17/17 02/17/17 02/17/17 07:00 15:00 23:00 07:00 15:00 23:00 Intake Total 360 ml 360 ml Balance 360 ml 360 ml Intake Oral 360 ml 360 ml # Voids 1 Imaging GENERAL: in NAD CARDIOVASCULAR: Regular rate and rhythm without murmurs, gallops, or rubs. RESPIRATORY: Breath sounds equal bilaterally. No accessory muscle use. GASTROINTESTINAL: Abdomen soft, non-tender, nondistended. MUSCULOSKELETAL: Bilateral hand swelling. No warmth or pain or erythema noted. BACK: Nontender without obvious deformity. No CVA tenderness. Medications and IVs Current Medications Diphenhydramine HCl (Benadryl) 50 mg Q6H PRN PO For mild anxiety and/or EPS; Start 02/15/17 at 19:15 Diphenhydramine HCl (Benadryl Inj) 50 mg Q6H PRN IM For mild anxiety and/or EPS ; Start 02/15/17 at 19:15 Magnesium Hydroxide (Milk Of Magnesia Liq) 30 ml DAILY PRN PO CONSTIPATION; Start 02/15/17 at 19:15 Al Hydrox/Mg Hydrox/Simethicone (Mag-Al Plus Susp Liq) 30 ml Q6H PRN PO DYSPEPSIA; Start 02/15/17 at 19:15 Nicotine (Habitrol 21 Mg Patch.24 Hr) 1 patch DAILY T-DERMAL Last administered on 02/17/17t 09:43; Start 02/16/17 at 09:00 Flumazenil (Romazicon Inj) 0.2 mg Q1M PRN IV PUSH SEE LABEL COMMENTS; Start at 19:15 Lorazepam (Ativan) 1 mg Q4H PRN PO CIWA 8 - 10; Start 02/15/17 at 19:15 Lorazepam (Ativan) 2 mg Q2H PRN PO CIWA 11-14; Start 02/15/17 at 19:15 Miscellaneous Information 1 DAILY T-DERMAL ; Start 02/16/17 at 09:00 Clindamycin HCl (Cleocin) 300 mg TID PO Last administered on 02/17/17 12:21; Start 02/16/17 at 09:00 Quetiapine Fumarate (SEROquel) 50 mg BID PO Last administered on 02/17/17 09: 43; Start 02/16/17 at 13:00 Trazodone HCl (Desyrel) 100 mg HS PO Last administered on 02/16/17 20:35; Start 02/16/17 at 21:00 Hydroxyzine HCl (Atarax) 25 mg Q8H PO Last administered on 02/17/17 12:21; Start 02/16/17 at 13:00 A/P Problem List: (1) Suicidal thoughts ICD Code: R45.851 - Suicidal ideations (2) Adjustment disorder with depressed mood ICD Code: F43.21 - Adjustment disorder with depressed mood Assessment and Plan Strep throat pharyngitis: PNC allergic, confirmed on Group A strep antigen. Patient was given clindamycin. Possibility of allergy since he has bilateral hand swelling and a pruritic rash that resolved. Clindamycin and treat with a Z -Kannan. Bilateral hand swelling: Be secondary to allergic reaction. The only new medication that patient had was clindamycin. See treatment as above. There is no signs of infection. The monitor clinically. Rhabdomyolysis: Continue IVF. Improving. Monitor CPK level. Monitor kidney function. Suicidal thoughts/thoughts to harm himself.: Pt currently under backer act. Being managed by inpatient psychiatry. Suicidal ideation. Depression/personality/mood disorder: management per psych Itching/rash: pt treated with permetrin in ED for possible scabies. Continue benadryl prn. Seemed to resolve quickly. Question if his allergic reaction.` DVT proph: early ambulation Eliza Castellanos MD Feb 17, 2017 16:06
[2017-02-17] MEDS: diphenhydrAMINE HCL 25 MG CAP PO SCH ×2 (16:21→20:33)
[2017-02-17] MEDS ORDERED: IBUPROFEN 400 MG TAB PO ONE (20:00)
[2017-02-17] MEDS: traZODone HCL 100 MG TAB PO SCH (20:34)
[2017-02-18] MEDS: diphenhydrAMINE HCL 25 MG CAP PO SCH ×4 (04:00→20:37)
[2017-02-18] MEDS: hydrOXYzine HCL 25 MG TAB PO SCH ×3 (05:00→20:37)
[2017-02-18 06:09] VITALS: BP 100/53; PULSE 78; RESP 18; TEMP 97.4; O2SAT 98
[2017-02-18] MEDS: REMOVE OLD PATCH T-DERMAL SCH (09:00)
[2017-02-18] MEDS: NICOTINE 21 MG/24 HR PATCH T-DERMAL SCH ×2 (09:00→09:42)
[2017-02-18] MEDS: QUEtiapine FUMARATE 25 MG TAB PO SCH ×2 (09:42→20:37)
[2017-02-18] MEDS: AZITHROMYCIN 250 MG TAB PO SCH (09:42)
--- NOTE | 2017-02-18 10:59 | HHI.PYPN ---
Subjective Remarks Patient seen and examined with tech. Chart reviewed. Case discussed with nursing staff. No behavioral issues overnight. On my exam, patient complains of feeling "dunia messed up in the head; weird." Affect is dysphoric. He reports "I don't feel like hurting myself in here, but if I leave I will do something stupid." Some manipulativeness noted in patient's presentation. No psychotic symptoms. Patient reports a history of Borderline Personality Disorder. He reports a history of suicide attempt by OD as well as a history of nonsuicidal self-injurious behavior. He denies side effects from current medications. We discussed pharmacotherapeutic options given his historical diagnosis and settle on addition of an SSRI to target dysphoria; R/B/A reviewed with patient. No physical complaints besides hand swelling, which has been evaluated by the hospitalist. Review of Systems Except as stated in HPI: all other systems reviewed are Neg Mental Status Examination Appearance: Appropriate Consciousness: Alert Orientation: x4 Motor Activity: Other (no motor abnormalities noted) Speech: Unremarkable Language: Adequate Fund of Knowledge: Adequate Attention and Concentration: Adequate Memory: Unremarkable Mood: Other (dysphoric) Affect: Other (consistent with mood) Thought Process & Associations: Intact, Logical, Linear Thought Content: Appropriate Hallucination Type: None Delusion Type: None Suicidal Ideation: No (denies SI in the hospital but see above) Suicidal Plan: No Suicidal Intention: No Homicidal Ideation: No Homicidal Plan: No Homicidal Intention: No Insight: Adequate Judgment: Adequate Results Labs Labs reviewed. It appears there has been some difficulty in obtaining labs. The original laboratory orders that I gave when I admitted the patient as the on -call doctor are still listed as "in process" despite being several days old. Subsequent orders from the hospitalist have been canceled by the laboratory for unclear reasons. I have discontinued all current laboratories and really ordered a stat CMP and a CK as well as follow-up CMP and CK for tomorrow morning. Vitals/IOs Vital Signs Date Time Temp Pulse Resp B/P (MAP) Pulse Ox O2 Delivery O2 Flow Rate FiO2 02/18/17 06:09 97.4 78 18 100/53 (69) 98 Assessment & Plan Problem List: (1) Adjustment disorder with depressed mood ICD Codes: F43.21 - Adjustment disorder with depressed mood (2) Cluster B personality disorder ICD Codes: F60.9 - Personality disorder, unspecified Assessment & Plan Add Lexapro 10 mg daily to target dysphoria. Continue Seroquel 50 mg twice daily. Check stat CMP and CK and check follow-up CMP and CK tomorrow morning. Hospitalist input noted and appreciated. Continue to monitor on the inpatient unit. Continue other medications and care as ordered. Justification for Cont. Inpt. Med changes. Monitoring for impairment in safety, none noted. Discharge Planning Anticipate discharge middle of the week. Iron Couch MD Feb 18, 2017 10:59
[2017-02-18] MEDS: ESCITALOPRAM OXALATE 10 MG TAB PO SCH (11:00)
--- NOTE | 2017-02-18 16:40 | HHI.PR ---
Subjective Remarks f/u b/l swelling of hand patient stated still has swelling of hand pain is the same. It has not worsen. remains afebrile. no rash noted. Objective Vitals Vital Signs Date Time Temp Pulse Resp B/P (MAP) Pulse Ox O2 Delivery O2 Flow Rate FiO2 02/18/17 06:09 97.4 78 18 100/53 (69) 98 02/17/17 21:14 I/O 02/17/17 02/17/17 02/17/17 02/18/17 02/18/17 02/18/17 07:00 15:00 23:00 07:00 15:00 23:00 Intake Total 360 ml 360 ml Balance 360 ml 360 ml Intake Oral 360 ml 360 ml Objective Remarks GENERAL: in NAD NECK: Supple, trachea midline. No JVD or lymphadenopathy. CARDIOVASCULAR: Regular rate and rhythm without murmurs, gallops, or rubs. RESPIRATORY: Breath sounds equal bilaterally. No accessory muscle use. GASTROINTESTINAL: Abdomen soft, non-tender, nondistended. MUSCULOSKELETAL: + swelling of B/L hand more on L>R. improvement in right hand. no erythema. milt warmth. limited ROM due to swelling but able to move hand and fingers. BACK: Nontender without obvious deformity. No CVA tenderness. Medications and IVs Current Medications Diphenhydramine HCl (Benadryl) 50 mg Q6H PRN PO For mild anxiety and/or EPS; Start 02/15/17 at 19:15 Diphenhydramine HCl (Benadryl Inj) 50 mg Q6H PRN IM For mild anxiety and/or EPS ; Start 02/15/17 at 19:15 Magnesium Hydroxide (Milk Of Magnesia Liq) 30 ml DAILY PRN PO CONSTIPATION; Start 02/15/17 at 19:15 Al Hydrox/Mg Hydrox/Simethicone (Mag-Al Plus Susp Liq) 30 ml Q6H PRN PO DYSPEPSIA; Start 02/15/17 at 19:15 Nicotine (Habitrol 21 Mg Patch.24 Hr) 1 patch DAILY T-DERMAL Last administered on 02/17/17t 09:43; Start 02/16/17 at 09:00 Flumazenil (Romazicon Inj) 0.2 mg Q1M PRN IV PUSH SEE LABEL COMMENTS; Start at 19:15 Lorazepam (Ativan) 1 mg Q4H PRN PO CIWA 8 - 10 Last administered on 02/17/17 20:34; Start 02/15/17 at 19:15 Lorazepam (Ativan) 2 mg Q2H PRN PO CIWA 11-14; Start 02/15/17 at 19:15 Miscellaneous Information 1 DAILY T-DERMAL ; Start 02/16/17 at 09:00 Clindamycin HCl (Cleocin) 300 mg TID PO Last administered on 02/17/17 12:21; Start 02/16/17 at 09:00; Stop 02/17/17 at 15:57; Status DC Quetiapine Fumarate (SEROquel) 50 mg BID PO Last administered on 02/18/17 09: 42; Start 02/16/17 at 13:00 Trazodone HCl (Desyrel) 100 mg HS PO Last administered on 02/17/17 20:34; Start 02/16/17 at 21:00 Hydroxyzine HCl (Atarax) 25 mg Q8H PO Last administered on 02/18/17 13:16; Start 02/16/17 at 13:00 Diphenhydramine HCl (Benadryl) 25 mg Q6H PO Last administered on 02/18/17 16: 29; Start 02/17/17 at 16:00 Azithromycin (Zithromax) 250 mg DAILY PO Last administered on 02/18/17 09:42 ; Start 02/18/17 at 09:00 Azithromycin (Zithromax) 500 mg ONCE ONCE PO Last administered on 02/17/17 16:22; Start 02/17/17 at 16:00; Stop 02/17/17 at 16:04; Status DC Ibuprofen (Motrin) 400 mg ONCE ONCE PO Last administered on 02/17/17 20:34; Start 02/17/17 at 20:00; Stop 02/17/17 at 20:01; Status DC Escitalopram Oxalate (Lexapro) 10 mg DAILY PO Last administered on 02/18/17 11:00; Start 02/18/17 at 11:00 A/P Problem List: (1) Suicidal thoughts ICD Code: R45.851 - Suicidal ideations (2) Adjustment disorder with depressed mood ICD Code: F43.21 - Adjustment disorder with depressed mood Assessment and Plan Strep throat pharyngitis: PNC allergic, confirmed on Group A strep antigen. on z susan. asymptomatic. Bilateral hand swelling: maybe secondary to allergic reaction. The only new medication that patient had was clindamycin. clinda d/ on 02/17. mild improvement but patient feels has no improved. will get CBC,BMP, sed rate, CRP, and xray of hand. If work up negative will try steroid due to suspicion for allergic reaction. Rhabdomyolysis: Continue IVF. Improving. Monitor CPK level. Monitor kidney function. Suicidal thoughts/thoughts to harm himself.: Pt currently under backer act. Being managed by inpatient psychiatry. Suicidal ideation. Depression/personality/mood disorder: management per psych Itching/rash: pt treated with permetrin in ED for possible scabies. Continue benadryl prn. Seemed to resolve quickly. Question if his allergic reaction.` DVT proph: early ambulation Eliza Castellanos MD Feb 18, 2017 16:40
[2017-02-18] MEDS: traZODone HCL 100 MG TAB PO SCH (20:37)
[2017-02-19] MEDS: diphenhydrAMINE HCL 25 MG CAP PO SCH ×4 (03:52→22:00)
[2017-02-19] MEDS: hydrOXYzine HCL 25 MG TAB PO SCH (05:00)
[2017-02-19 05:47] VITALS: BP 130/80; PULSE 93; RESP 18; TEMP 97.4; O2SAT 96
[2017-02-19] MEDS: REMOVE OLD PATCH T-DERMAL SCH (09:00)
[2017-02-19] MEDS: AZITHROMYCIN 250 MG TAB PO SCH (09:43)
[2017-02-19] MEDS: NICOTINE 21 MG/24 HR PATCH T-DERMAL SCH (09:43)
[2017-02-19] MEDS: ESCITALOPRAM OXALATE 10 MG TAB PO SCH (09:44)
[2017-02-19] MEDS: QUEtiapine FUMARATE 25 MG TAB PO SCH (09:44)
--- NOTE | 2017-02-19 13:11 | HHI.PYPN ---
Subjective Remarks Patient seen and examined with nurse. Chart reviewed. Case discussed in treatment team with counselor and occupational therapist. Per nursing staff, patient somewhat flippant in his responses, see nursing note regarding SI question. For me today, patient describes mood as "it's all good." He denies SI on the inpatient unit but continues to insinuate that he might be at some risk if discharged. This seems fairly manipulative in context. Denies audiovisual hallucinations. Denies side effects from medications. Besides ongoing hand swelling, no physical complaints. Patient notes that the hand swelling began the day after he arrived on the inpatient psychiatric unit, i.e. 02/16. I note that hospitalist suspected clindamycin as causative agent and that this agent has been discontinued, but hand swelling persists. Reviewing the medication administration record, Seroquel was also started shortly before swelling was reported to have begun. Review of Systems Except as stated in HPI: all other systems reviewed are Neg Mental Status Examination Appearance: Appropriate Consciousness: Alert Orientation: x4 Motor Activity: Other (no abnormal motor movements noted) Speech: Unremarkable Language: Adequate Fund of Knowledge: Adequate Attention and Concentration: Adequate Memory: Unremarkable Mood: Other ("it's all good") Affect: Blunt Thought Process & Associations: Intact, Logical, Goal directed, Linear Thought Content: Appropriate Hallucination Type: None Delusion Type: None Suicidal Ideation: No (denies SI presently) Suicidal Plan: No Suicidal Intention: No Homicidal Ideation: No Homicidal Plan: No Homicidal Intention: No Insight: Adequate Judgment: Adequate Results Labs Labs reviewed. Patient refusing labs per nursing staff. Vitals/IOs Vital Signs Date Time Temp Pulse Resp B/P (MAP) Pulse Ox O2 Delivery O2 Flow Rate FiO2 02/19/17 05:47 97.4 93 18 130/80 (97) 96 Intake and Output 02/19/17 02/19/17 02/20/17 08:00 16:00 00:00 Intake Total 480 ml Balance 480 ml Assessment & Plan Problem List: (1) Adjustment disorder with depressed mood ICD Codes: F43.21 - Adjustment disorder with depressed mood (2) Cluster B personality disorder ICD Codes: F60.9 - Personality disorder, unspecified Assessment & Plan Hold Seroquel in case this is causative agent in hand swelling. I note that the hospitalist has added Benadryl scheduled, and so I will hold scheduled hydroxyzine ordered by Dr. Thurman to avoid polypharmacy with antihistamines. Continue Lexapro as ordered. Continue to monitor on an inpatient unit. Continue other medications and care as ordered. Justification for Cont. Inpt. Complicating condition Discharge Planning Anticipate discharge by the end of the week. Request HC Surrog/Guard Advoc?: No Iron Couch MD Feb 19, 2017 13:11
--- NOTE | 2017-02-19 14:26 | PD.TTN ---
Patient Problems 1. Discharge planning 2. Medication compliance 3. Knowledge deficit 4. Lack of coping skills Progress Toward Goals Provider Present: Dr. Sun Couch Provider Input: Pt medication regiment is being evaluated and changes will be made if necessary. Nurse(s) Present: Sandra Lee RN Nurse(s) Input: Pt has been refusing labs, uncooperative, withdrawn, he has been no behavioral problems and has been taking medication. Psychiatric Counselors Present: ISAIAH Dumont Psych Therapist Input: Pt remains withdrawn, seclusive, uncooperative, demanding and resistant to aspects of treatment. Pt is compliant with medication regiment. Insight remains poor into condition and need for care. He presents with limited coping and emotional regulation skills. Presentation suggests personality disorder as possible additional factor in pt behavior. Group Spec/RT/OT/MARTINEZ Present: MICHELLE Saravia Group Spec/RT/OT/MARTINEZ Input: Pt does not attend groups at this time. Discharge Plan SMA Pt will likely be a homeless discharge and will linked to any necessary services including outpatient psychiatric follow up services and scripts being filled. Documentation Scribe: ISAIAH Dumont Jonathan LMHC Feb 19, 2017 14:25
--- NOTE | 2017-02-19 15:52 | HHI.PR ---
Subjective Remarks Palpable bilateral hand swelling Patient stated that lab was not able to obtain blood from him due to his history of IV drug use. He has no complaints. Swelling has improved. Objective Vitals Vital Signs Date Time Temp Pulse Resp B/P (MAP) Pulse Ox O2 Delivery O2 Flow Rate FiO2 02/19/17 05:47 97.4 93 18 130/80 (97) 96 I/O 02/18/17 02/18/17 02/18/17 02/19/17 02/19/17 02/19/17 07:00 15:00 23:00 07:00 15:00 23:00 Intake Total 480 ml Balance 480 ml Intake Oral 480 ml Objective Remarks GENERAL: in NAD NECK: Supple, trachea midline. No JVD or lymphadenopathy. CARDIOVASCULAR: Regular rate and rhythm without murmurs, gallops, or rubs. RESPIRATORY: Breath sounds equal bilaterally. No accessory muscle use. GASTROINTESTINAL: Abdomen soft, non-tender, nondistended. MUSCULOSKELETAL: + swelling of B/L hand more on L>R. improvement in bilateral hands. No erythema or warmth. Increase range of motion. BACK: Nontender without obvious deformity. No CVA tenderness. Medications and IVs Current Medications Diphenhydramine HCl (Benadryl) 50 mg Q6H PRN PO For mild anxiety and/or EPS; Start 02/15/17 at 19:15 Diphenhydramine HCl (Benadryl Inj) 50 mg Q6H PRN IM For mild anxiety and/or EPS ; Start 02/15/17 at 19:15 Magnesium Hydroxide (Milk Of Magnesia Liq) 30 ml DAILY PRN PO CONSTIPATION; Start 02/15/17 at 19:15 Al Hydrox/Mg Hydrox/Simethicone (Mag-Al Plus Susp Liq) 30 ml Q6H PRN PO DYSPEPSIA; Start 02/15/17 at 19:15 Nicotine (Habitrol 21 Mg Patch.24 Hr) 1 patch DAILY T-DERMAL Last administered on 02/19/17 09:43; Start 02/16/17 at 09:00 Flumazenil (Romazicon Inj) 0.2 mg Q1M PRN IV PUSH SEE LABEL COMMENTS; Start at 19:15 Lorazepam (Ativan) 1 mg Q4H PRN PO CIWA 8 - 10 Last administered on 02/17/17 20:34; Start 02/15/17 at 19:15 Lorazepam (Ativan) 2 mg Q2H PRN PO [facility] 11-14; Start 02/15/17 at 19:15 Miscellaneous Information 1 DAILY T-DERMAL ; Start 02/16/17 at 09:00 Clindamycin HCl (Cleocin) 300 mg TID PO Last administered on 02/17/17 12:21; Start 02/16/17 at 09:00; Stop 02/17/17 at 15:57; Status DC Quetiapine Fumarate (SEROquel) 50 mg BID PO Last administered on 02/19/17 09: 44; Start 02/16/17 at 13:00 Trazodone HCl (Desyrel) 100 mg HS PO Last administered on 02/18/17 20:37; Start 02/16/17 at 21:00 Hydroxyzine HCl (Atarax) 25 mg Q8H PO Last administered on 02/18/17 20:37; Start 02/16/17 at 13:00; Status Future Hold Diphenhydramine HCl (Benadryl) 25 mg Q6H PO Last administered on 02/19/17 09: 45; Start 02/17/17 at 16:00 Azithromycin (Zithromax) 250 mg DAILY PO Last administered on 02/19/17 09:43 ; Start 02/18/17 at 09:00 Azithromycin (Zithromax) 500 mg ONCE ONCE PO Last administered on 02/17/17 16:22; Start 02/17/17 at 16:00; Stop 02/17/17 at 16:04; Status DC Ibuprofen (Motrin) 400 mg ONCE ONCE PO Last administered on 02/17/17 20:34; Start 02/17/17 at 20:00; Stop 02/17/17 at 20:01; Status DC Escitalopram Oxalate (Lexapro) 10 mg DAILY PO Last administered on 02/19/17 09:44; Start 02/18/17 at 11:00 Prednisone (Deltasone) 50 mg DAILY PO ; Start 02/19/17 at 14:15 A/P Problem List: (1) Suicidal thoughts ICD Code: R45.851 - Suicidal ideations (2) Adjustment disorder with depressed mood ICD Code: F43.21 - Adjustment disorder with depressed mood Assessment and Plan Strep throat pharyngitis: PNC allergic, confirmed on Group A strep antigen. on z susan. asymptomatic. Bilateral hand swelling: Most likely allergic reaction. On scheduled Benadryl. Improving. Patient refused x-ray of the hands. Will try prednisone. Monitor clinically. Rhabdomyolysis: Resolved. Suicidal thoughts/thoughts to harm himself.: Pt currently under backer act. Being managed by inpatient psychiatry. Suicidal ideation. Depression/personality/mood disorder: management per psych Itching/rash: pt treated with permetrin in ED for possible scabies. Continue benadryl prn. Seemed to resolve quickly. Question if his allergic reaction.` DVT proph: early ambulation Eliza Castellanos MD Feb 19, 2017 15:52
[2017-02-19] MEDS: predniSONE 50 MG TAB PO SCH (18:31)
[2017-02-19 18:49] VITALS: BP 127/77; PULSE 92; RESP 18; TEMP 98; O2SAT 98
[2017-02-19] MEDS: traZODone HCL 100 MG TAB PO SCH (20:56)
[2017-02-20] MEDS: diphenhydrAMINE HCL 25 MG CAP PO SCH ×4 (04:00→22:00)
[2017-02-20 06:17] VITALS: BP 110/69; PULSE 96; RESP 18; TEMP 97.3; O2SAT 95
[2017-02-20] MEDS: NICOTINE 21 MG/24 HR PATCH T-DERMAL SCH (09:00)
[2017-02-20] MEDS: REMOVE OLD PATCH T-DERMAL SCH (09:00)
[2017-02-20] MEDS: ESCITALOPRAM OXALATE 10 MG TAB PO SCH (09:41)
[2017-02-20] MEDS: AZITHROMYCIN 250 MG TAB PO SCH (09:41)
[2017-02-20] MEDS: predniSONE 50 MG TAB PO SCH (09:41)
--- NOTE | 2017-02-20 11:09 | HHI.PYPN ---
Subjective Remarks Patient seen and examined with nurse. Chart reviewed. I note hospitalist has added steroid for hand swelling. Case discussed with nursing staff. No significant behavioral issues overnight. Patient presents today as a fairly vague historian. In context, it seems like he is providing little information in an effort to prolong his stay by sowing ambiguity and uncertainty into his case. He describes his mood as "the same," which would suggest that he remains dysphoric, although his affect is in fact fairly full and reactive today, and he does not appear particularly depressed. When asked outright, the patient denies any suicidal or homicidal ideation. He contracts for safety. He denies any audiovisual hallucinations. No evidence of impairment in reality construction. Denies side effects from Lexapro. No physical complaints besides hand swelling, which patient reports is improving. Review of Systems ROS Limitations: Poor Historian (suspect volitional) Except as stated in HPI: all other systems reviewed are Neg Mental Status Examination Appearance: Appropriate Consciousness: Alert Orientation: x4 Motor Activity: Other (no motor abnormalities noted) Speech: Unremarkable Language: Adequate Fund of Knowledge: Adequate Attention and Concentration: Adequate Memory: Unremarkable Mood: Other ("the same") Affect: Appropriate (fairly full and reactive today) Thought Process & Associations: Intact, Logical, Goal directed, Linear Thought Content: Appropriate Hallucination Type: None Delusion Type: None Suicidal Ideation: No Suicidal Plan: No Suicidal Intention: No Homicidal Ideation: No Homicidal Plan: No Homicidal Intention: No Insight: Adequate Judgment: Adequate Results Labs Labs reviewed. Per RN, patient refusing labs. Vitals/IOs Vital Signs Date Time Temp Pulse Resp B/P (MAP) Pulse Ox O2 Delivery O2 Flow Rate FiO2 02/20/17 06:17 97.3 96 18 110/69 (83) 95 Assessment & Plan Problem List: (1) Adjustment disorder with depressed mood ICD Codes: F43.21 - Adjustment disorder with depressed mood (2) Cluster B personality disorder ICD Codes: F60.9 - Personality disorder, unspecified Assessment & Plan Suspect component or malingering for long-term. Discussed with patient titrating Lexapro to target reported dysphoria, and he is agreeable to this. Titrate Lexapro to 20 mg daily. Unclear if improvement in hand swelling is due to holding Seroquel or initiation of steroid. I will continue to hold Seroquel. Hospitalist input noted and appreciated. Continue other medications and care as ordered. Justification for Cont. Inpt. Complicating condition Discharge Planning Anticipate discharge tomorrow pending medical clearance. Request HC Surrog/Guard Advoc?: No Iron Couch MD Feb 20, 2017 11:09
[2017-02-20] MEDS ORDERED: ESCITALOPRAM OXALATE 10 MG TAB PO ONE (12:30)
--- NOTE | 2017-02-20 14:58 | HHI.PR ---
Subjective Remarks Follow-up for bilateral hand swelling Patient stated swelling is a lot better. He stated that he is able to move his hands a lot more. Pain has improved. He has no other complaints. Remains afebrile. Objective Vitals Vital Signs Date Time Temp Pulse Resp B/P (MAP) Pulse Ox O2 Delivery O2 Flow Rate FiO2 02/20/17 06:17 97.3 96 18 110/69 (83) 95 02/19/17 18:49 98.0 92 18 127/77 (94) 98 I/O 02/19/17 02/19/17 02/19/17 02/20/17 02/20/17 02/20/17 07:00 15:00 23:00 07:00 15:00 23:00 Intake Total 480 ml 480 ml Balance 480 ml 480 ml Intake Oral 480 ml 480 ml Objective Remarks GENERAL: in NAD NECK: Supple, trachea midline. No JVD or lymphadenopathy. CARDIOVASCULAR: Regular rate and rhythm without murmurs, gallops, or rubs. RESPIRATORY: Breath sounds equal bilaterally. No accessory muscle use. GASTROINTESTINAL: Abdomen soft, non-tender, nondistended. MUSCULOSKELETAL: + swelling of B/L hand more on L>R. improvement in bilateral hands. No erythema or warmth. Increase range of motion. BACK: Nontender without obvious deformity. No CVA tenderness. Medications and IVs Current Medications Diphenhydramine HCl (Benadryl) 50 mg Q6H PRN PO For mild anxiety and/or EPS; Start 02/15/17 at 19:15 Diphenhydramine HCl (Benadryl Inj) 50 mg Q6H PRN IM For mild anxiety and/or EPS ; Start 02/15/17 at 19:15 Magnesium Hydroxide (Milk Of Magnesia Liq) 30 ml DAILY PRN PO CONSTIPATION; Start 02/15/17 at 19:15 Al Hydrox/Mg Hydrox/Simethicone (Mag-Al Plus Susp Liq) 30 ml Q6H PRN PO DYSPEPSIA; Start 02/15/17 at 19:15 Nicotine (Habitrol 21 Mg Patch.24 Hr) 1 patch DAILY T-DERMAL Last administered on 02/19/17t 09:43; Start 02/16/17 at 09:00 Flumazenil (Romazicon Inj) 0.2 mg Q1M PRN IV PUSH SEE LABEL COMMENTS; Start at 19:15 Lorazepam (Ativan) 1 mg Q4H PRN PO CIWA 8 - 10 Last administered on 02/17/17 20:34; Start 02/15/17 at 19:15 Lorazepam (Ativan) 2 mg Q2H PRN PO CIWA 11-14; Start 02/15/17 at 19:15 Miscellaneous Information 1 DAILY T-DERMAL ; Start 02/16/17 at 09:00 Clindamycin HCl (Cleocin) 300 mg TID PO Last administered on 02/17/17 12:21; Start 02/16/17 at 09:00; Stop 02/17/17 at 15:57; Status DC Quetiapine Fumarate (SEROquel) 50 mg BID PO Last administered on 02/19/17 09: 44; Start 02/16/17 at 13:00; Status Future Hold Trazodone HCl (Desyrel) 100 mg HS PO Last administered on 02/19/17 20:56; Start 02/16/17 at 21:00 Hydroxyzine HCl (Atarax) 25 mg Q8H PO Last administered on 02/18/17 20:37; Start 02/16/17 at 13:00; Status Future Hold Diphenhydramine HCl (Benadryl) 25 mg Q6H PO Last administered on 02/20/17 10: 00; Start 02/17/17 at 16:00 Azithromycin (Zithromax) 250 mg DAILY PO Last administered on 02/20/17 09:41 ; Start 02/18/17 at 09:00 Azithromycin (Zithromax) 500 mg ONCE ONCE PO Last administered on 02/17/17 16:22; Start 02/17/17 at 16:00; Stop 02/17/17 at 16:04; Status DC Ibuprofen (Motrin) 400 mg ONCE ONCE PO Last administered on 02/17/17 20:34; Start 02/17/17 at 20:00; Stop 02/17/17 at 20:01; Status DC Escitalopram Oxalate (Lexapro) 10 mg DAILY PO Last administered on 02/20/17 09:41; Start 02/18/17 at 11:00; Stop 02/20/17 at 11:03; Status DC Prednisone (Deltasone) 50 mg DAILY PO Last administered on 02/20/17 09:41; Start 02/19/17 at 14:15 Escitalopram Oxalate (Lexapro) 20 mg DAILY PO ; Start 02/21/17 at 09:00 Escitalopram Oxalate (Lexapro) 10 mg ONCE ONCE PO Last administered on 13:03; Start 02/20/17 at 12:30; Stop 02/20/17 at 12:31; Status DC A/P Problem List: (1) Suicidal thoughts ICD Code: R45.851 - Suicidal ideations (2) Adjustment disorder with depressed mood ICD Code: F43.21 - Adjustment disorder with depressed mood Assessment and Plan Strep throat pharyngitis: PNC allergic, confirmed on Group A strep antigen. on z susan. asymptomatic. Bilateral hand swelling: Most likely allergic reaction. Drastic improvement with prednisone. Continue prednisone and Benadryl schedule. Rhabdomyolysis: Resolved. Suicidal thoughts/thoughts to harm himself.: Pt currently under backer act. Being managed by inpatient psychiatry. Suicidal ideation. Depression/personality/mood disorder: management per psych Itching/rash: pt treated with permetrin in ED for possible scabies. Continue benadryl prn. Seemed to resolve quickly. Question if his allergic reaction.` DVT proph: early ambulation Eliza Castellanos MD Feb 20, 2017 14:58
[2017-02-20 16:09] VITALS: BP 149/76; PULSE 93; RESP 18; TEMP 97.4; O2SAT 97
[2017-02-20] MEDS ORDERED: BENA25CA4 PO (18:12)
[2017-02-20] MEDS ORDERED: AZIT250T3 PO (18:12)
[2017-02-20] MEDS ORDERED: PRED50 PO (18:12)
[2017-02-20] MEDS: traZODone HCL 100 MG TAB PO SCH (20:57)
[2017-02-21] MEDS: diphenhydrAMINE HCL 25 MG CAP PO SCH ×2 (04:00→09:38)
[2017-02-21 05:56] VITALS: BP 148/73; PULSE 86; RESP 18; TEMP 97.2; O2SAT 98
[2017-02-21] MEDS: REMOVE OLD PATCH T-DERMAL SCH (09:00)
[2017-02-21] MEDS ORDERED: ESCITALOPRAM OXALATE 20 MG TAB PO SCH (09:00)
[2017-02-21] MEDS: NICOTINE 21 MG/24 HR PATCH T-DERMAL SCH (09:00)
[2017-02-21] MEDS: AZITHROMYCIN 250 MG TAB PO SCH (09:38)
[2017-02-21] MEDS: predniSONE 50 MG TAB PO SCH (09:38)
[2017-02-21] MEDS ORDERED: TRAZ50TA12 PO (11:47)
[2017-02-21] MEDS ORDERED: ESCI20TA PO (11:47)
--- NOTE | 2017-02-21 11:47 | HHI.DS ---
Psychiatry Discharge Summary Inpatient Psychiatric care?: Yes Advance Directive: No Reason Not Provided: pt deny need of advance directive or living will. Mental Health AdvanceDirective: No Health Care Proxy: No Admission Admission Date Feb 15, 2017 at 18:15 Admission Diagnosis: (1) Adjustment disorder with depressed mood ICD Code: F43.21 - Adjustment disorder with depressed mood (2) Antisocial personality disorder ICD Code: F60.2 - Antisocial personality disorder Brief History 02/15/2017 On psychiatric evaluation the patient is irritable, oppositional, resistant, refusing to fully cooperate and provide information for the psychiatric assessment. Patient does report that he has been very overwhelmed, stressed, angry and having suicidal ideation with the plan of overdosing or jumping into traffic. The patient has an extensive history of psychiatric admissions, I'll attempts, self cutting behavior with no SI, poor impulse control, aggressive behavior, substance abuse, incarcerations, and he has been diagnosed with borderline personality disorder and antisocial personality disorder in the past. Patient has an increased risk of suicidality and danger to himself at this moment and he needs psychiatric admission for stabilization. I have discussed with primary medical team the benefit of psychiatric admission in the med psych unit to continue medical care/psychiatric care concomitantly. Will order Seroquel 50 twice a day for mood stabilization. Haldol 5 mg IM every 8 hours when necessary aggressive behavior and agitation, since patient has also an increased risk for agitation and aggressive behavior. Keep the patient with a one-to-one sitter in the medical floor. Brief supportive psychotherapy, motivation and psychoeducation provided. Collateral information still pending. 02/16/2017 patient was seen today for psychiatric reevaluation. Chart reviewed. Recommendation for hospitalist reviewed and appreciated. She was sitting alone with nurse in charge Arianna. On psychiatric evaluation patient is irritable, demanding, verbally hostile. Patient says that he doesn't want to give any blood because he is tired of people thinking that he is a drug addict. Patient reports feeling "the same", he says that he has been feeling depressed sad and empty for many years and he doesn't understand what is wrong with him. At this moment the patient denies suicidal and homicidal ideation, he denies visual and auditory hallucinations. He feels safe in the unit. He is oriented 3, no gross cognitive impairment present. As the nurse was explaining to the patient the importance of having an IV line, the patient became all of the sudden loud and disrespectful with the nurse and had to be verbally de-escalate. Tobacco Use In Past 30 Days: No Tobacco Past 30 Days Alcohol Use: Never Hospital Course Patient was admitted to a locked, inpatient psychiatric unit. A general medical consultation was obtained. Appropriate precautions were in place throughout patient's hospital stay. Patient was seen and examined daily on the unit by psychiatry and also visited by counselor. Psychotropic medications were adjusted. With the benefit of observation, it seems likely that, besides some transient, initial dysphoria, patient's psychiatric symptoms were largely malingered for long-term. There was no evidence of any suicidality or homicidality on the inpatient unit. Although somewhat demanding, the patient was no real behavioral problem. He was noted to attend to his basic needs. On the day of discharge: Patient seen and examined. Chart reviewed. Case discussed with nursing staff. Patient refused laboratories but was no behavioral problem overnight. On my examination today, the patient denies suicidal or homicidal ideation, intent or plan. Affect seems brighter today. There are no depressive or hypomanic/manic symptoms. No audiovisual hallucinations, and I can elicit no delusional material. There is no evidence of any impairment in reality construction. Cluster B personality traits, chiefly antisocial, are prominent. Suicide and violence risk assessment on day of discharge both suggest lower imminent risk with the caveat that it is at least possible that the patient might malinger psychiatric symptoms or even make some sort of gesture in order to once again gain admission to the inpatient psychiatric unit. However, this physician feels it would be unproductive and in fact counter-therapeutic to retain the patient on the inpatient unit to avoid such an eventuality. Patient's antisocial personality traits confer chronic but not acute or imminent risk for harm to self/others, and this risk would not be ameliorated by a longer inpatient psychiatric hospital stay. The patient has maximized benefit from this inpatient psychiatric hospital stay will be discharged today with psychiatric follow-up as arranged by counselor. Patient is also to follow-up with primary care. I have counseled the patient to return to psychiatric emergency room for any concerning psychiatric symptoms as part of a general safety plan. Results Blood Pressure 148 / 73 Vital Signs Date Time Temp Pulse Resp B/P (MAP) Pulse Ox O2 Delivery O2 Flow Rate FiO2 02/21/17 05:56 97.2 86 18 148/73 (98) 98 Refused labs Summary of Procedures None done Imaging None done Pending results at discharge: No Medications # of Antipsychotic meds at D/C: 0 Approp Antipsych med options 1 - Minimum of three failed multiple trials of monotherapy. 2 - Documented plan to taper to monotherapy due to previous use of multiple meds OR cross-taper in progress at D/C. 3 - Documentation of augmentation of Clozapine. 4 - Justification other than those listed in allowable values 1-3, document here : Discharge Discharge Date: Feb 21, 2017 Discharge Diagnosis: (1) Malingering Diagnosis: Principal ICD Code: Z76.5 - Malingerer [conscious simulation] (2) Cluster B personality disorder Diagnosis: Secondary (Antisocial, chiefly) ICD Code: F60.9 - Personality disorder, unspecified Pt Condition on Discharge: Stable Discharge Disposition: Discharge Home Discharge Instructions Diet Instructions: As Tolerated, No Restrictions Activities you can perform: Weight Bearing as Tracy Scheduled Appointment: as per counselor's notes New Orders: COMP MET PROF (CMP) - 1 Week CREATININE KINASE - 1 Week New Medications: Azithromycin (Azithromycin) 250 Mg Tab 250 MG PO DAILY for infection, #1 TAB 0 Refills Diphenhydramine HCl (Benadryl Allergy) 25 Mg Cap 25 MG PO BID for Allergic Reaction for 5 Days, #10 CAP 0 Refills Escitalopram (Escitalopram) 20 Mg Tab 20 MG PO DAILY for Mental Health for 7 Days, #7 TAB 3 Refills Prednisone (Prednisone) 50 Mg Tab 50 MG PO DAILY for Allergic Reaction, #6 TAB 0 Refills Trazodone (Trazodone) 50 Mg Tab 100 MG PO HS for Mental Health for 7 Days, TAB 3 Refills Discontinued Medications: Clindamycin (Clindamycin) 300 Mg Cap 300 MG PO TID for Infection for 10 Days, #29 CAP 0 Refills Discharge Time <= 30 minutes Mental Status Examination Appearance: Appropriate Consciousness: Alert Orientation: x4 Motor Activity: Other (no motoric abnormalities appreciated) Speech: Unremarkable Language: Adequate Fund of Knowledge: Adequate Attention and Concentration: Adequate Memory: Unremarkable Mood: Appropriate Affect: Appropriate Thought Process & Associations: Intact, Logical, Goal directed, Linear Thought Content: Appropriate Hallucination Type: None Delusion Type: None Suicidal Ideation: No Suicidal Plan: No Suicidal Intention: No Homicidal Ideation: No Homicidal Plan: No Homicidal Intention: No Insight: Adequate Judgment: Adequate Discharge/Advance Care Plan Health Problems: (1) Adjustment disorder with depressed mood (2) Cluster B personality disorder Goals to promote your health * To prevent worsening of your condition and complications * To maintain your health at the optimal level Directions to meet your goals Take your medications as prescribed Follow your dietary instruction Follow activity as directed Keep your appointments as scheduled Take your immunizations and boosters as scheduled If your symptoms worsen call your PCP, if no PCP go to Urgent Care Center or Emergency Room For 24/09 questions related to your inpatient stay or results of tests pending at discharge, please contact Dr. Iron Couch at Smoking is Dangerous to Your Health. Avoid second hand smoking Iron Couch MD Feb 21, 2017 11:47
== END 2017-02-21 14:20 | disposition home or self-care (01) | DRG 881 ==
LOC: H4EA 18:15 → H270 02-16 11:00
PROVIDERS: ADMIT Psychiatry & Neurology Psychiatry; ATTEND Psychiatry & Neurology Psychiatry
DX: F43.21 Adjustment disorder with depressed mood (principal); M62.82 Rhabdomyolysis; R45.851 Suicidal ideations; F17.210 Nicotine dependence, cigarettes, uncomplicated; J02.0 Streptococcal pharyngitis; Z79.899 Other long term (current) drug therapy; F41.9 Anxiety disorder, unspecified; F60.2 Antisocial personality disorder; Z53.20 Procedure and treatment not carried out because of patient's decision for unspecified reasons; Z76.5 Malingerer [conscious simulation]; M79.89 Other specified soft tissue disorders; T50.905A Adverse effect of unspecified drugs, medicaments and biological substances, initial encounter; Z91.5 Personal history of self-harm
CPT/HCPCS: J7512

== ENCOUNTER 2017-03-23 01:29 | Emergency (ER) | payer SELFPAY ==
[~2017-03-23] VITALS: Ht 180.3 cm; Wt 86.4 kg
[~2017-03-23 01:29] MED LIST changes: +AZIT250T3 PO; +BENA25CA4 PO; -CLIN300C5 PO; +ESCI20TA PO; +PRED50 PO; +TRAZ50TA12 PO; -Z.0.NO CURRENT MEDS
[2017-03-23 01:30] VITALS: BP 143/90; PULSE 110; RESP 16; TEMP 97.9; O2SAT 98
[2017-03-23] MEDS ORDERED: KLON2TAB PO (01:49)
--- NOTE | 2017-03-23 02:48 | PD ---
HPI Chief Complaint: Psychiatric Symptoms Time Seen by Provider: 02:36 Travel History International Travel<30 days: No Contact w/Intl Traveler<30days: No Traveled to known affect area: No History of Present Illness HPI 36-year-old white male presents to emergency department requesting psychological evaluation and admission. He states that he has a history of borderline personality disorder, anxiety, depression, and substance abuse. He was treated in the emergency department and admitted last month. He was discharged and was to follow-up with [facility] but he did not. He has been living on the streets. He is homeless. He states that this has made him feel increasingly depressed and having suicidal and homicidal thoughts. He states that she does not get help some was going to get hurt. He denies any toxic ingestions. He admits to smoking marijuana and drinking alcohol on occasion. He states that he has not done IV drugs and some time now. History of hepatitis C. He denies any acute medical complaints. PFSH Past Medical History Narrative Medical Seizure disorder, borderline personality disorder, anxiety, depression, and substance abuse, hepatitis C, rhabdomyolysis Asthma: No Anxiety: Yes Depression: Yes Cancer: No Endocrine: No Genitourinary: No Headaches: No Psychiatric: Yes (Hx of Bipolar Disorder, Anxiety, Antisocial PD and [place] PD) Reproductive: No Immunizations Current: Yes Migraines: Yes Seizures: Yes (last seizure 5mths ago) Sleep Apnea: No Past Surgical History Eye Surgery: Yes Joint Replacement: No Pacemaker: No Social History Alcohol Use: Yes (SOCIAL) Tobacco Use: Yes (2 PPD) Substance Use: Yes (MJ OCC) Allergies-Medications (Allergen,Severity, Reaction): Coded Allergies: acetaminophen (Unverified Allergy, Severe, Anaphylaxis, 03/23/17) bee venom protein (honey bee) (Unverified Allergy, Severe, Anaphylaxis, ) penicillin G (Unverified Allergy, Mild, 03/23/17) Reported Meds & Prescriptions Reported Meds & Active Scripts Active Reported Klonopin (Clonazepam) 2 Mg Tab 2 Mg PO BID Review of Systems General / Constitutional: No: Fever Eyes: No: Visual changes HENT: No: Headaches Cardiovascular: No: Chest Pain or Discomfort Respiratory: No: Shortness of Breath Gastrointestinal: No: Abdominal Pain Genitourinary: No: Dysuria Musculoskeletal: No: Pain Skin: No Rash Neurologic: No: Weakness Psychiatric: Positive: Depression, Suicidal Ideations, Mood Disorder, Substance Abuse, Homicidal Ideation, No: Anxiety, Disorder of Thought Endocrine: No: Polydipsia Hematologic/Lymphatic: No: Easy Bruising Physical Exam Narrative GENERAL: Well-nourished, well-developed patient. SKIN: Warm and dry. HEAD: Normocephalic and atraumatic. EYES: No scleral icterus. No injection or drainage. ENT: No nasal drainage noted. Mucous membranes pink. Airway patent. NECK: Supple, trachea midline. Moves head freely without obvious discomfort. CARDIOVASCULAR: Regular rate and rhythm without murmurs, gallops, or rubs. RESPIRATORY: Breath sounds equal bilaterally. No accessory muscle use. GASTROINTESTINAL: Abdomen soft, non-tender, nondistended. EXTREMITIES: No cyanosis or edema. BACK: Nontender without obvious deformity. No CVA tenderness. NEURO: Patient is alert and oriented. no sensorimotor deficits. Nonfocal. Normal speech. PSYCH: No delusions. No auditory or visual hallucinations. Data Data Last Documented VS Vital Signs Date Time Temp Pulse Resp B/P (MAP) Pulse Ox O2 Delivery O2 Flow Rate FiO2 03/23/17 01:30 97.9 110 16 143/90 (107) 98 Room Air Orders Orders Complete Blood Count With Diff (03/23/17 02:44) Comprehensive Metabolic Panel (03/23/17 02:44) Psych Screen (03/23/17 02:44) Drug Screen, Random Urine (03/23/17 02:44) Alcohol (Ethanol) (03/23/17 02:44) Salicylates (Aspirin) (03/23/17 02:44) Tylenol (Acetaminophen) (03/23/17 02:44) Labs Laboratory Tests Test 03/23/17 03:00 White Blood Count 8.8 TH/MM3 Red Blood Count 4.38 MIL/MM3 Hemoglobin 13.0 GM/DL Hematocrit 39.4 % Mean Corpuscular Volume 89.9 FL Mean Corpuscular Hemoglobin 29.7 PG Mean Corpuscular Hemoglobin Concent 33.0 % Red Cell Distribution Width 13.6 % Platelet Count 267 TH/MM3 Mean Platelet Volume 9.3 FL Neutrophils (%) (Auto) 68.9 % Lymphocytes (%) (Auto) 23.1 % Monocytes (%) (Auto) 6.2 % Eosinophils (%) (Auto) 1.2 % Basophils (%) (Auto) 0.6 % Neutrophils # (Auto) 6.0 TH/MM3 Lymphocytes # (Auto) 2.0 TH/MM3 Monocytes # (Auto) 0.5 TH/MM3 Eosinophils # (Auto) 0.1 TH/MM3 Basophils # (Auto) 0.1 TH/MM3 CBC Comment DIFF FINAL Differential Comment Blood Urea Nitrogen 15 MG/DL Creatinine 0.92 MG/DL Random Glucose 92 MG/DL Total Protein 7.9 GM/DL Albumin 3.4 GM/DL Calcium Level 9.0 MG/DL Alkaline Phosphatase 120 U/L Aspartate Amino Transf (AST/SGOT) 32 U/L Alanine Aminotransferase (ALT/SGPT) 41 U/L Total Bilirubin 0.2 MG/DL Sodium Level 141 MEQ/L Potassium Level 4.3 MEQ/L Chloride Level 107 MEQ/L Carbon Dioxide Level 26.6 MEQ/L Anion Gap 7 MEQ/L Estimat Glomerular Filtration Rate 92 ML/MIN Salicylates Level 1.8 MG/DL Urine Opiates Screen NEG Acetaminophen Level LESS THAN 2.0 MCG/ML Urine Barbiturates Screen NEG Urine Amphetamines Screen NEG Urine Benzodiazepines Screen NEG Urine Cocaine Screen POS Urine Cannabinoids Screen POS Ethyl Alcohol Level LESS THAN 3 MG/DL MDM Medical Decision Making Medical Screen Exam Complete: Yes Emergency Medical Condition: Yes Medical Record Reviewed: Yes Interpretation(s) Laboratory Tests Test 03/23/17 03:00 White Blood Count 8.8 TH/MM3 Red Blood Count 4.38 MIL/MM3 Hemoglobin 13.0 GM/DL Hematocrit 39.4 % Mean Corpuscular Volume 89.9 FL Mean Corpuscular Hemoglobin 29.7 PG Mean Corpuscular Hemoglobin Concent 33.0 % Red Cell Distribution Width 13.6 % Platelet Count 267 TH/MM3 Mean Platelet Volume 9.3 FL Neutrophils (%) (Auto) 68.9 % Lymphocytes (%) (Auto) 23.1 % Monocytes (%) (Auto) 6.2 % Eosinophils (%) (Auto) 1.2 % Basophils (%) (Auto) 0.6 % Neutrophils # (Auto) 6.0 TH/MM3 Lymphocytes # (Auto) 2.0 TH/MM3 Monocytes # (Auto) 0.5 TH/MM3 Eosinophils # (Auto) 0.1 TH/MM3 Basophils # (Auto) 0.1 TH/MM3 CBC Comment DIFF FINAL Differential Comment Blood Urea Nitrogen 15 MG/DL Creatinine 0.92 MG/DL Random Glucose 92 MG/DL Total Protein 7.9 GM/DL Albumin 3.4 GM/DL Calcium Level 9.0 MG/DL Alkaline Phosphatase 120 U/L Aspartate Amino Transf (AST/SGOT) 32 U/L Alanine Aminotransferase (ALT/SGPT) 41 U/L Total Bilirubin 0.2 MG/DL Sodium Level 141 MEQ/L Potassium Level 4.3 MEQ/L Chloride Level 107 MEQ/L Carbon Dioxide Level 26.6 MEQ/L Anion Gap 7 MEQ/L Estimat Glomerular Filtration Rate 92 ML/MIN Salicylates Level 1.8 MG/DL Urine Opiates Screen NEG Acetaminophen Level LESS THAN 2.0 MCG/ML Urine Barbiturates Screen NEG Urine Amphetamines Screen NEG Urine Benzodiazepines Screen NEG Urine Cocaine Screen POS Urine Cannabinoids Screen POS Ethyl Alcohol Level LESS THAN 3 MG/DL Differential Diagnosis MDM: High Differential diagnoses: Schizophrenia, schizoaffective disorder, bipolar, anxiety, depression, adjustment reaction, mood disorder NOS, ODD, depressive disorder NOS, dementia, dementia with agitation, psychosis NOS, substance induced mood disorder, DMDD, Asperger syndrome, infection,electrolyte abnormality, malingering. Narrative Course Mental health screening discussed with the patient. Psychiatric screen ordered. The patient been medically cleared. The patient is positive for cocaine and marijuana. This is medical clearance for psychiatric admission, polysubstance abuse Diagnosis Primary Impression: Medical clearance for psychiatric admission Additional Impression: Polysubstance abuse Condition: Stable Endy Torres Mar 23, 2017 02:48
[2017-03-23 03:26] LABS: BASOPHIL # 0.1 TH/MM3 (0-0.2); BASOPHIL % 0.6 % (0.0-2.0); EOSINOPHIL # 0.1 TH/MM3 (0-0.4); EOSINOPHIL % 1.2 % (0.0-4.0); HEMATOCRIT 39.4 % (39.0-51.0); LYMPH % 23.1 % (9.0-44.0); MEAN CELL VOLUME 89.9 FL (80.0-100.0); MEAN CORPUSCULAR HEMOGLOBIN 29.7 PG (27.0-34.0); MEAN PLATELET VOLUME 9.3 FL (7.0-11.0); MONO % 6.2 % (0.0-8.0); MONOCYTE # 0.5 TH/MM3 (0-0.9); NEUT % 68.9 % (16.0-70.0); PLATELET COUNT 267 TH/MM3 (150-450); RED BLOOD COUNT 4.38 MIL/MM3 (4.50-5.90); RED CELL DISTRIBUTION WIDTH 13.6 % (11.6-17.2); WHITE BLOOD COUNT 8.8 TH/MM3 (4.0-11.0)
[2017-03-23 04:43] LABS: ALBUMIN 3.4 GM/DL (3.4-5.0); ALT (GPT) 41 U/L (12-78); BICARBONATE 26.6 MEQ/L (21.0-32.0); BLOOD UREA NITROGEN 15 MG/DL (7-18); CHLORIDE 107 MEQ/L (98-107); CREATININE 0.92 MG/DL (0.60-1.30); GLOMERULAR FILTRATION RATE 92 ML/MIN (>89); GLUCOSE,RANDOM 92 MG/DL (74-106); SODIUM (NA) 141 MEQ/L (136-145)
[2017-03-23 05:03] LABS: ACETAMINOPHEN LESS THAN 2.0 MCG/ML (10.0-30.0); ALKALINE PHOSPHATASE 120 U/L (45-117); AST (GOT) 32 U/L (15-37); TOTAL BILIRUBIN ADULT 0.2 MG/DL (0.2-1.0); TOTAL PROTEIN 7.9 GM/DL (6.4-8.2)
[2017-03-23 06:35] VITALS: BP_SYST 139; BP_DIAS 7; BP_DIAS 77; PULSE 87; RESP 18; O2SAT 99
--- NOTE | 2017-03-23 10:33 | PD ---
Physical Exam Date Seen by Provider: Mar 23, 2017 Time Seen by Provider: 10:32 Narrative 36-year-old male with history of Asperger's syndrome previously medically clear for psychiatric evaluation has been seen by psychiatric services and deemed psychiatrically stable for discharge. Patient remains medically stable at this time. Patient is to follow-up as per psychiatric note. Data Data Last Documented VS Vital Signs Date Time Temp Pulse Resp B/P (MAP) Pulse Ox O2 Delivery O2 Flow Rate FiO2 03/23/17 06:35 87 18 139/77 (97) 99 Room Air 03/23/17 01:30 97.9 Orders Orders Complete Blood Count With Diff (03/23/17 02:44) Comprehensive Metabolic Panel (03/23/17 02:44) Psych Screen (03/23/17 02:44) Drug Screen, Random Urine (03/23/17 02:44) Alcohol (Ethanol) (03/23/17 02:44) Salicylates (Aspirin) (03/23/17 02:44) Tylenol (Acetaminophen) (03/23/17 02:44) Diet Regular Basic (03/23/17 Breakfast) Diet Regular Basic (03/23/17 Lunch) Labs Laboratory Tests Test 03/23/17 03:00 White Blood Count 8.8 TH/MM3 Red Blood Count 4.38 MIL/MM3 Hemoglobin 13.0 GM/DL Hematocrit 39.4 % Mean Corpuscular Volume 89.9 FL Mean Corpuscular Hemoglobin 29.7 PG Mean Corpuscular Hemoglobin Concent 33.0 % Red Cell Distribution Width 13.6 % Platelet Count 267 TH/MM3 Mean Platelet Volume 9.3 FL Neutrophils (%) (Auto) 68.9 % Lymphocytes (%) (Auto) 23.1 % Monocytes (%) (Auto) 6.2 % Eosinophils (%) (Auto) 1.2 % Basophils (%) (Auto) 0.6 % Neutrophils # (Auto) 6.0 TH/MM3 Lymphocytes # (Auto) 2.0 TH/MM3 Monocytes # (Auto) 0.5 TH/MM3 Eosinophils # (Auto) 0.1 TH/MM3 Basophils # (Auto) 0.1 TH/MM3 CBC Comment DIFF FINAL Differential Comment Blood Urea Nitrogen 15 MG/DL Creatinine 0.92 MG/DL Random Glucose 92 MG/DL Total Protein 7.9 GM/DL Albumin 3.4 GM/DL Calcium Level 9.0 MG/DL Alkaline Phosphatase 120 U/L Aspartate Amino Transf (AST/SGOT) 32 U/L Alanine Aminotransferase (ALT/SGPT) 41 U/L Total Bilirubin 0.2 MG/DL Sodium Level 141 MEQ/L Potassium Level 4.3 MEQ/L Chloride Level 107 MEQ/L Carbon Dioxide Level 26.6 MEQ/L Anion Gap 7 MEQ/L Estimat Glomerular Filtration Rate 92 ML/MIN Salicylates Level 1.8 MG/DL Urine Opiates Screen NEG Acetaminophen Level LESS THAN 2.0 MCG/ML Urine Barbiturates Screen NEG Urine Amphetamines Screen NEG Urine Benzodiazepines Screen NEG Urine Cocaine Screen POS Urine Cannabinoids Screen POS Ethyl Alcohol Level LESS THAN 3 MG/DL MDM Medical Record Reviewed: Yes Supervised Visit with VASILE: Yes Narrative Course 36-year-old male with history of Asperger's syndrome previously medically clear for psychiatric evaluation has been seen by psychiatric services and deemed psychiatrically stable for discharge. Patient remains medically stable at this time. Patient is to follow-up as per psychiatric note. Diagnosis Primary Impression: Medical clearance for psychiatric admission Additional Impression: Polysubstance abuse Patient Instructions: General Instructions Disposition: 01 DISCHARGE HOME Condition: Stable Bernard Llamas Mar 23, 2017 10:33
--- NOTE | 2017-03-23 10:40 | PD.PSY.CON ---
Provisional Diagnosis Admission Date [place]. Substance induced mood disorder, polysubstance dependence including cocaine and cannabis, Bipolar disorder, anxiety, depression, rule out malingering with the secondary gain of using the hospital as a halfway [place] II. Antisocial personality disorder [place] III. Hepatitis c History of Present Illness Service Psychiatry Consult Requested By ER team Reason for Consult Suicidal ideation and depression Primary Care Physician Panchito Jackson MD HPI The patient is a a 36 year-old man, single, unemployed, homeless, with a self-reported psychiatric history of bipolar disorder, anxiety, antisocial personality disorder, borderline personality disorder, substance use disorder, multiple psychiatric hospitalizations, multiple suicidal attempts, self cutting behavior with no SI, aggressive behavior, multiple incarcerations, He was treated in the emergency department and admitted last month. He was discharged and was to follow-up with [facility] but he did not "I don't feel that they can help me". He states that this has made him feel increasingly depressed and having suicidal and homicidal thoughts. He states that she does not get help some was going to get hurt. He denies any toxic ingestions. He admits to smoking marijuana and drinking alcohol on occasion. He states that he has not done IV drugs and some time now. History of hepatitis C. He denies any acute medical complaints. Patient was seen today for psychiatric evaluation. Patient was calm, cooperative, he was found sleeping pleasantly. I have discussed the case with nursing staff, who reports that the patient has been quite comfortable in the ER, eating appropriately, behaving appropriately too. The patient reports that since he was discharged from [place], he has been homeless, he has not been able to take his medications "because I don't feel like they're going to help me", however he reports he has been using multiple drugs. Patient says that his current situation, unemployment, homelessness and continues use of drugs make him feel very depressed and if he wants to hurt himself. Patient requested psychiatric admission "he asked to be admitted until Saturday". The patient is fully oriented 3, no attention deficit, no fluctuation of consciousness, no psychotic behavior, no agitation, no aggressive behavior, no paranoia, no ideas of reference, no rufino no objective depression are observed at this moment. The patient was discharged from [place] last month by Dr. Couch: "There are no depressive or hypomanic/manic symptoms. No audiovisual hallucinations, and I can elicit no delusional material. There is no evidence of any impairment in reality construction. Cluster B personality traits, chiefly antisocial, are prominent. Suicide and violence risk assessment on day of discharge both suggest lower imminent risk with the caveat that it is at least possible that the patient might malinger psychiatric symptoms or even make some sort of gesture in order to once again gain admission to the inpatient psychiatric unit. However, this physician feels it would be unproductive and in fact counter-therapeutic to retain the patient on the inpatient unit to avoid such an eventuality. Patient's antisocial personality traits confer chronic but not acute or imminent risk for harm to self/others, and this risk would not be ameliorated by a longer inpatient psychiatric hospital stay. The patient has maximized benefit from this inpatient psychiatric hospital stay will be discharged today with psychiatric follow-up as arranged by counselor. Patient is also to follow-up with primary care. I have counseled the patient to return to psychiatric emergency room for any concerning psychiatric symptoms as part of a general safety plan. Review of Systems Constitutional: DENIES: Diaphoretic episodes, Fatigue, Fever, Weight gain, Weight loss, Chills, Dizziness, Change in appetite, Night Sweats Endocrine: DENIES: Heat/cold intolerance, Polydipsia, Polyuria, Polyphagia Eyes: DENIES: Blurred vision, Diplopia, Eye inflammation, Eye pain, Vision loss , Photosensitivity, Double Vision Ears, nose, mouth, throat: DENIES: Tinnitus, Hearing loss, Vertigo, Nasal discharge, Oral lesions, Throat pain, Hoarseness, Ear Pain, Running Nose, Epistaxis, Sinus Pain, Toothache, Odynophagia Respiratory: DENIES: Apneas, Cough, Snoring, Wheezing, Hemoptysis, Sputum production, Shortness of breath Cardiovascular: DENIES: Chest pain, Palpitations, Syncope, Dyspnea on Exertion , PND, Lower Extremity Edema, Orthopnea, Claudication Gastrointestinal: DENIES: Abdominal pain, Black stools, Bloody stools, Constipation, Diarrhea, Nausea, Vomiting, Difficulty Swallowing, Anorexia Genitourinary: DENIES: Sexual dysfunction, Urinary frequency, Urinary incontinence, Urgency, Hematuria, Dysuria, Nocturia, Penile Discharge, Testicular Pain, Testicular Swelling Musculoskeletal: DENIES: Joint pain, Muscle aches, Stiffness, Joint Swelling, Back pain, Neck pain Integumentary: DENIES: Abnormal pigmentation, Nail changes, Pruritus, Rash Hematologic/lymphatic: DENIES: Bruising, Lymphadenopathy Immunologic/allergic: DENIES: Eczema, Urticaria Neurologic: DENIES: Abnormal gait, Headache, Localized weakness, Paresthesias, Seizures, Speech Problems, Tremor, Poor Balance Psychiatric: DENIES: Anxiety, Confusion, Mood changes, Depression, Hallucinations, Agitation, Suicidal Ideation, Homicidal Ideation, Delusions Past Family Social History Coded Allergies: acetaminophen (Unverified Allergy, Severe, Anaphylaxis, 03/23/17) bee venom protein (honey bee) (Unverified Allergy, Severe, Anaphylaxis, ) penicillin G (Unverified Allergy, Mild, 03/23/17) Reported Medications Clonazepam (Klonopin) 2 Mg Tab, 2 MG PO BID, #60 TAB 0 Refills 03/23/17 Discontinued Scripts Trazodone (Trazodone) 50 Mg Tab, 100 MG PO HS for Mental Health for 7 Days, TAB 3 Refills Prov:Iron Couch MD 02/21/17 Escitalopram (Escitalopram) 20 Mg Tab, 20 MG PO DAILY for Mental Health for 7 Days, #7 TAB 3 Refills Prov:Iron Couch MD 02/21/17 Prednisone (Prednisone) 50 Mg Tab, 50 MG PO DAILY for Allergic Reaction, #6 TAB 0 Refills Prov:Eliza Castellanos MD 02/20/17 Diphenhydramine HCl (Benadryl Allergy) 25 Mg Cap, 25 MG PO BID for Allergic Reaction for 5 Days, #10 CAP 0 Refills Prov:Eliza Castellanos MD 02/20/17 Azithromycin (Azithromycin) 250 Mg Tab, 250 MG PO DAILY for infection, #1 TAB 0 Refills Prov:Eliza Castellanos MD 02/20/17 Family Psych History No family psychiatric history Social History Patient was born and raised in [place], he lives in [facility], he is homeless, unemployed, single, his highest level of education is high school Patient's Strengths (min. 2) Verbal communication Physical Exam Vital Signs Vital Signs Date Time Temp Pulse Resp B/P (MAP) Pulse Ox O2 Delivery O2 Flow Rate FiO2 03/23/17 06:35 87 18 139/77 (97) 99 Room Air 03/23/17 01:30 97.9 Lab Results Test 03/23/17 03:00 White Blood Count 8.8 TH/MM3 Red Blood Count 4.38 MIL/MM3 Hemoglobin 13.0 GM/DL Hematocrit 39.4 % Mean Corpuscular Volume 89.9 FL Mean Corpuscular Hemoglobin 29.7 PG Mean Corpuscular Hemoglobin Concent 33.0 % Red Cell Distribution Width 13.6 % Platelet Count 267 TH/MM3 Mean Platelet Volume 9.3 FL Neutrophils (%) (Auto) 68.9 % Lymphocytes (%) (Auto) 23.1 % Monocytes (%) (Auto) 6.2 % Eosinophils (%) (Auto) 1.2 % Basophils (%) (Auto) 0.6 % Neutrophils # (Auto) 6.0 TH/MM3 Lymphocytes # (Auto) 2.0 TH/MM3 Monocytes # (Auto) 0.5 TH/MM3 Eosinophils # (Auto) 0.1 TH/MM3 Basophils # (Auto) 0.1 TH/MM3 CBC Comment DIFF FINAL Differential Comment Blood Urea Nitrogen 15 MG/DL Creatinine 0.92 MG/DL Random Glucose 92 MG/DL Total Protein 7.9 GM/DL Albumin 3.4 GM/DL Calcium Level 9.0 MG/DL Alkaline Phosphatase 120 U/L Aspartate Amino Transf (AST/SGOT) 32 U/L Alanine Aminotransferase (ALT/SGPT) 41 U/L Total Bilirubin 0.2 MG/DL Sodium Level 141 MEQ/L Potassium Level 4.3 MEQ/L Chloride Level 107 MEQ/L Carbon Dioxide Level 26.6 MEQ/L Anion Gap 7 MEQ/L Estimat Glomerular Filtration Rate 92 ML/MIN Salicylates Level 1.8 MG/DL Urine Opiates Screen NEG Acetaminophen Level LESS THAN 2.0 MCG/ML Urine Barbiturates Screen NEG Urine Amphetamines Screen NEG Urine Benzodiazepines Screen NEG Urine Cocaine Screen POS Urine Cannabinoids Screen POS Ethyl Alcohol Level LESS THAN 3 MG/DL Mental Status Examination Appearance: Appropriate Consciousness: Alert Orientation: x4 Motor Activity: Normal gait Speech: Unremarkable Language: Adequate Fund of Knowledge: Adequate Attention and Concentration: Adequate Memory: Unremarkable Mood: Appropriate Affect: Appropriate Thought Process & Associations: Intact Thought Content: Appropriate Hallucination Type: None Delusion Type: None Suicidal Ideation: Yes Suicidal Plan: No Suicidal Intention: No Homicidal Ideation: No Homicidal Plan: No Homicidal Intention: No Insight: Adequate Judgment: Adequate Assessment & Plan Problem List: (1) Polysubstance abuse ICD Codes: F19.10 - Other psychoactive substance abuse, uncomplicated Status: Acute (2) Antisocial personality disorder ICD Codes: F60.2 - Antisocial personality disorder Assessment & Plan: On psychiatric evaluation today the patient is calm, cooperative, requesting to be admitted "until Saturday"and endorsing depressive symptoms in the context of homelessness, unemployment, substance abuse. He reports suicidal ideation without a specific plan with the statement that he has been feeling suicidal for a long time and he feels that he is going to do his son. The patient has a long history of antisocial behavior, antisocial personality disorder, noncompliant with medications, polysubstance dependence. She was recently discharged from [place] with very clear and precise recommendations that the patient did not follow-up, instead the patient has been using drugs every day. My opinion is that the patient is using his psychiatric symptoms in order to get a bed in the hospital and use the hospital as a halfway and is a source of medications. It is clear to me that, due to his underlying personality pathology, patient does not benefit of psychiatric admission. I understand that the patient has a chronic elevated risk for suicidality, poor impulse control, and also crime due to his antisocial personality disorder and also persisting use of drugs, but a psychiatric hospitalization would not decrease this risk. He most probably might benefit of a detox/rehabilitation program for his drug abuse. Psychoeducation about the importance of avoiding drugs was provided. Brief supportive psychotherapy motivation also provided. Patient will be also provided with referral to [facility]. He can be discharged. Assessment & Plan Estimated LOS: Mikael Nj MD Mar 23, 2017 10:40
[2017-03-23 10:56] VITALS: BP 163/95; PULSE 84; RESP 18; TEMP 98.6; O2SAT 99
== END 2017-03-23 11:41 | disposition home or self-care (01) ==
LOC: NEPD 01:29 → NEPJ 11:41
DX: Z00.8 Encounter for other general examination (principal); F19.10 Other psychoactive substance abuse, uncomplicated; F60.3 Borderline personality disorder; F41.9 Anxiety disorder, unspecified; F31.9 Bipolar disorder, unspecified; F60.2 Antisocial personality disorder; B19.20 Unspecified viral hepatitis C without hepatic coma; R45.851 Suicidal ideations; R45.850 Homicidal ideations
CPT/HCPCS: 80053; 80307; 85025; 99283